=== PATIENT | female | born 2000 | race Caucasian/White ===

== ENCOUNTER 2022-08-22 17:22 | Inpatient (IN) ==
--- NOTE | 2022-08-22 18:19 | Emergency Department Note ---
Impression & Plan Depression with suicidal ideation, [facility] ED Provider Note NAME: CHLOÉ LEWIS AGE: 21 SEX: F : 2000 ARRIVES VIA: Police [employer] INFORMANT: Patient, police ED PROVIDER(S): Abel Duncan DO CHIEF COMPLAINT: Mental health evaluation HPI: The patient is a 21-year-old female who presented to the emergency department with police for an evaluation. The patient arrived with a 302 petition. Apparently the patient has been acting erratically. She also made suicidal ideation no no friend. The friend filled out the 302 petition. The patient self denies having any chest pain or difficulty breathing. She denies having any fever. She denies having any overdose. The patient states that she does have a history of depression. She states she has not been taking her medications and is unsure what the name is but she thinks it could be an SSRI. The patient states that she is never been admitted for the symptoms before. ROS: See above HPI for pertinent positives & negatives. A total of 10 systems reviewed and were otherwise negative. PAST MEDICAL HISTORY: See Below PAST SURGICAL HISTORY: See Below FAMILY HISTORY: See Below SOCIAL HISTORY: See Below HOME MEDICATIONS: See Below ALLERGIES: See Below VITALS: See Below PHYSICAL EXAMINATION: GENERAL: Patient is awake alert in no acute distress patient is resting comfortably and showing no signs of anxiety EYES: The conjunctivae are clear. The pupils are round and reactive. EARS, NOSE, MOUTH AND THROAT: The nose is without any evidence of any deformity. Mucous membranes are moist. Tongue is midline. NECK: The neck is nontender and supple. RESPIRATORY: Normal respiratory effort is noted there is no evidence of wheezing rhonchi or rales CARDIOVASCULAR: Regular rate and rhythm noted there no murmurs rubs or gallops normal S1 normal S2. GASTROINTESTINAL: The abdomen is soft. Abdomen is nontender. MUSCULOSKELETAL/EXTREMITIES: There is no evidence of gross deformity full range of motion is noted in the hips and shoulders. SKIN: There is no obvious evidence of any rash. There are no petechiae, pallor or cyanosis noted. NEUROLOGIC: Patient is awake alert and oriented x3. PSYCH: The patient makes good eye contact mostly evaluation. Affect is somewhat animated. Currently patient is denying any suicidal homicidal ideation. MEDICAL DECISION MAKING: The patient is a 21-year-old female who presented to the emergency department for an evaluation of mental health issues. The patient was a 302 petition when she arrived. I did review the 302 petition. Additional history was obtained from police. The patient was medically cleared in the emergency department. She was then evaluated by the mental health case sealer. She was felt to be a good candidate for inpatient management but the patient has very poor insight into her overall condition. For this reason the 302 petition was upheld by myself. Bed search was underway but the patient was evaluated by 3 S. She was felt to be a good candidate for inpatient psychiatric care at our facility. Triage Nursing notes reviewed. Prior medical records reviewed Vital Signs: reviewed and remarkable for no significant abnormalities Differential diagnosis: Mood disorder, infection, hypoglycemia, electrolyte abnormalities, cardiac sources, intracerebral event, toxicologic, trauma, neurologic, as well as other pathologies. ER treatment provided: See below Diagnostics interpreted by me: ECG: none Laboratory studies: As stated above and show below. Imaging studies: See below. 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 Beliefs That Will Affect Care: None Feels Safe at Home: Yes Gender Identity: Female Assistive Devices: None Allergies Allergies Allergy/AdvReac Type Severity Reaction Status Date / Time amoxicillin [From Augmentin] Allergy Intermediate Rash Verified 09/11/21 22:35 clavulanic acid Allergy Intermediate Rash Verified 09/11/21 22:35 [From Augmentin] Home Meds Home Medications Medication Instructions Recorded Confirmed No Known Home Medications 09/11/21 08/22/22 Results & Data (ED) Vital Signs Vital Signs - 24 hr 08/22/22 17:26 Temperature 36.9 C Temperature Source Temporal Artery Scan Pulse Rate 86 Respiratory Rate 18 Respiratory Effort / Characteristics Non-Labored Spontaneous Respiratory Depth Normal Blood Pressure 133/89 Blood Pressure Mean 103 Blood Pressure Position Sitting Pulse Oximetry 97 Oxygen Delivery Method Room Air Sepsis Recent Fever Within 48 Hours No Sepsis New/Unexplained Change in Mental Status N/A Sepsis Action Taken by Nursing No Action Required Home Medications Current Medication List: was personally reviewed by me Laboratory Data Attestation: I reviewed the patient's lab results. 08/22/22 17:37 08/22/22 17:37 Lab Results 08/22/22 08/22/22 08/22/22 Range/Units 17:37 17:37 17:37 WBC 12.57 H (4.8-10.8) K/ul RBC 4.53 (4.20-5.40) M/uL Hgb 13.6 (12.0-16.0) g/dl Hct 39.3 (37.0-47.0) % MCV 86.8 (80.0-100.0) fL MCH 30.0 (25.0-34.0) pg MCHC 34.6 (32.0-36.0) g/dL RDW Std Deviation 37.4 (36.4-46.3) fL RDW Coeff of [place] 11.9 (11.5-14.5) % Plt Count 399 (130-400) K/uL MPV 9.7 (9.4-12.4) fL Immature Gran % (Auto) 0.3 % Neut % (Auto) 77.9 % Lymph % (Auto) 14.1 % [place] % (Auto) 7.1 % Eos % (Auto) 0.0 % Baso % (Auto) 0.6 % Neut # (Auto) 9.80 H (1.40-6.50) K/uL Lymph # (Auto) 1.77 (1.2-3.4) K/uL [place] # (Auto) 0.89 H (0.11-0.59) K/uL Eos # (Auto) 0.00 (0-0.50) K/uL Baso # (Auto) 0.07 (0-0.2) K/uL Immature Gran # (Auto) 0.04 (0.01-0.20) K/uL Sodium 139 (136-145) mmol/L Potassium 3.6 (3.5-5.1) mmol/L Chloride 106 (98-107) mmol/L Carbon Dioxide 20 L (21-32) mmol/L Anion Gap 13 H (3-11) BUN 12 (6-23) mg/dl Creatinine 0.95 (0.6-1.2) mg/dl Est Cr Clr Drug Dosing 80.9 ml/min Est GFR ( Amer) 99.2 ml/min Est GFR (Non-Af Amer) 85.6 ml/min BUN/Creatinine Ratio 12.6 (10-20) Glucose 130 H (70-99(Fasting)) mg/dl Calcium 10.6 H (8.5-10.1) mg/dl Total Bilirubin 0.9 (0.2-1.0) mg/dl AST 29 (13-39) U/L ALT 14 (7-52) U/L Alkaline Phosphatase 55 (34-104) U/L Total Protein 8.8 H (6.0-8.3) gm/dl Albumin 5.5 H (3.4-5.0) gm/dl Globulin 3.3 (2.5-4.0) gm/dl Albumin/Globulin Ratio 1.7 (0.9-2) TSH 2.820 (0.300-4.500) uIu/ml HCG, Qual (Negative) Salicylates (3.0-30) mg/dl Acetaminophen (10-30) ug/ml Ethyl Alcohol mg/dL (<10.0) mg/dl 08/22/22 08/22/22 08/22/22 Range/Units 17:37 17:37 17:37 WBC (4.8-10.8) K/ul RBC (4.20-5.40) M/uL Hgb (12.0-16.0) g/dl Hct (37.0-47.0) % MCV (80.0-100.0) fL MCH (25.0-34.0) pg MCHC (32.0-36.0) g/dL RDW Std Deviation (36.4-46.3) fL RDW Coeff of [place] (11.5-14.5) % Plt Count (130-400) K/uL MPV (9.4-12.4) fL Immature Gran % (Auto) % Neut % (Auto) % Lymph % (Auto) % [place] % (Auto) % Eos % (Auto) % Baso % (Auto) % Neut # (Auto) (1.40-6.50) K/uL Lymph # (Auto) (1.2-3.4) K/uL [place] # (Auto) (0.11-0.59) K/uL Eos # (Auto) (0-0.50) K/uL Baso # (Auto) (0-0.2) K/uL Immature Gran # (Auto) (0.01-0.20) K/uL Sodium (136-145) mmol/L Potassium (3.5-5.1) mmol/L Chloride (98-107) mmol/L Carbon Dioxide (21-32) mmol/L Anion Gap (3-11) BUN (6-23) mg/dl Creatinine (0.6-1.2) mg/dl Est Cr Clr Drug Dosing ml/min Est GFR ( Amer) ml/min Est GFR (Non-Af Amer) ml/min BUN/Creatinine Ratio (10-20) Glucose (70-99(Fasting)) mg/dl Calcium (8.5-10.1) mg/dl Total Bilirubin (0.2-1.0) mg/dl AST (13-39) U/L ALT (7-52) U/L Alkaline Phosphatase (34-104) U/L Total Protein (6.0-8.3) gm/dl Albumin (3.4-5.0) gm/dl Globulin (2.5-4.0) gm/dl Albumin/Globulin Ratio (0.9-2) TSH (0.300-4.500) uIu/ml HCG, Qual Negative (Negative) Salicylates < 3.0 L (3.0-30) mg/dl Acetaminophen < 3 L (10-30) ug/ml Ethyl Alcohol mg/dL < 10.0 (<10.0) mg/dl Administered Medications Hydroxyzine HCl (Hydroxyzine Hcl 25 Mg Tab) 50 mg PO HSZ PRN PRN Reason: Insomnia Stop: 09/21/22 20:37 Last Admin: 08/22/22 23:50 Dose: 50 mg Documented By: RDS Discharge Plan Visit Data Chief Complaint: Mental Health Evaluation Stated Complaint: 302 ED Provider: Abel Duncan Discharge Problem: Depression with suicidal ideation, [facility] Patient Disposition: Admitted As Inpatient Discharge Instructions Interventions: ED Discharge Assessment Last Done: 08/22/22 20:59
[2022-08-22 18:23] LABS: Appearance Urine Cloudy (Clear); Bacteria Urine Automated 1+ (Negative); Bilirubin Urine Negative (Negative); Blood Urine Negative (Negative); Color Urine Dark Yellow; Epithelial Cell Urine Auto >30 /lpf (0-5); Glucose Urine UA Negative (Negative); Ketones Urine 2+ (Negative); Leukocyte Esterase Urine Negative (Negative); Nitrite Urine Negative (Negative); Protein Urine 1+ (Negative); Specific Gravity Urine 1.042 (1.000-1.030); Urobilinogen Urine Negative (Negative)
[2022-08-22 18:26] LABS: Basophils # (auto) 0.07 K/uL (0-0.2); Basophils % (auto) 0.6 %; Hematocrit (blood only) 39.3 % (37.0-47.0); Hemoglobin 13.6 g/dl (12.0-16.0); Immature Granulocytes # (auto) 0.04 K/uL (0.01-0.20); Immature Granulocytes % (auto) 0.3 %; Lymphocytes # (auto) 1.77 K/uL (1.2-3.4); Lymphocytes % (auto) 14.1 %; Mean Corpuscular Hgb Conc 34.6 g/dL (32.0-36.0); Mean Corpuscular Volume 86.8 fL (80.0-100.0); Mean Platelet Volume 9.7 fL (9.4-12.4); Monocytes # (auto) 0.89 K/uL (0.11-0.59); Monocytes % (auto) 7.1 %; Neutrophils % (auto) 77.9 %; Platelet Count 399 K/uL (130-400); RDW Coefficient of Variation 11.9 % (11.5-14.5); RDW Standard Deviation 37.4 fL (36.4-46.3); Red Blood Count 4.53 M/uL (4.20-5.40); White Blood Count 12.57 K/ul (4.8-10.8)
[2022-08-22 18:33] LABS: Pregnancy Test, Serum Negative (Negative)
[2022-08-22 18:38] LABS: Albumin Globulin Ratio 1.7 (0.9-2); Albumin Level 5.5 gm/dl (3.4-5.0); BUN Creatinine Ratio 12.6 (10-20); Bilirubin,Total 0.9 mg/dl (0.2-1.0); Calcium 10.6 mg/dl (8.5-10.1); Creatinine Clr Calc Pharmacy 80.9 ml/min; Est GFR (African American) 99.2 ml/min; Est GFR (Non-African American) 85.6 ml/min; Globulin 3.3 gm/dl (2.5-4.0); Potassium 3.6 mmol/L (3.5-5.1); Total Protein 8.8 gm/dl (6.0-8.3)
[2022-08-22 18:44] LABS: Calcium Oxalate Crystals Urine Present (None Prsent); Mucus Urine Present (None Prsent)
[2022-08-22 18:52] LABS: Acetaminophen < 3 ug/ml (10-30); Salicylate < 3.0 mg/dl (3.0-30)
[2022-08-22 18:55] LABS: Amphetamines+Metham, Urine Neg (Neg); Barbiturates, Urine Neg (Neg); Benzodiazepine, Urine Neg (Neg); Cocaine, Urine Neg (Neg); MDMA (Ecstacy), Urine Neg (Neg); Methadone, Urine Neg (Neg); Opiate, Urine Neg (Neg); Phencyclidine, Urine Neg (Neg)
[2022-08-22] MEDS ORDERED: BISMUTH SUBSALICYLATE LIQD 236 ML PO PRN (20:38)
[2022-08-22] MEDS ORDERED: MAGNESIUM HYDROXIDE SUSP 30 ML UDC PO PRN (20:38)
[2022-08-22] MEDS ORDERED: ALUMINUM/MAGNESIUM SUSP 30 ML UDC PO PRN (20:38)
[2022-08-22] MEDS ORDERED: SODIUM CHLORIDE 0.65% NA SOLN 45 ML (OCEAN) PRN (20:38)
[2022-08-22] MEDS: hydrOXYzine HCl 25 MG TAB PO PRN (23:50)
[2022-08-23] MEDS: ACETAMINOPHEN 325 MG TAB PO PRN (00:38)
[2022-08-23] MEDS: OLANZapine 5 MG TABLET PO PRN (09:57)
--- NOTE | 2022-08-23 11:49 | History & Physical ---
Date of Service August 23, 2022 Impression / Recommendations Impression Allyssa is a 21 year old woman and [employer] senior with a history of depression who was admitted for lack of po intake, poor sleep, bizarre disorganized behaviors and statements of SI. Diagnostically consistent with unspecified psychosis with a broad differential including: substance-induced psychosis vs mixed episode of bipolar affective disorder vs primary psychotic disorder vs MDD with psychotic features vs underlying medical issue (elevated WBC but vitals stable and ED provider felt no concerning medical issues). UA was positive for ketones which supports concerns about her recent lack of po intake. She is deemed unstable and requires psychiatric hospitalization for diagnostic clarification, safety and stabilization, medication management and development of further coping skills. She is on a 302 commitment which expires on 08/27/2022 at 1853. She is unable to participate in a discussion about medication treatment options or to explore further the degree of her marijuana use and/or any use of synth etics such as delta 8. For now will start olanzapine to improve sleep, appetite and with goal of lessening psychosis and disorganization so that she can start to engage with treatment discussions and further exploration of symptoms and recent history. (1) Unspecified psychosis not due to a substance or known physiological condition: (2) Marijuana use: Plan 08/23/2022: [facility] patient [facility]) on q15 min checks (behavioral with suicide precautions) for safety. The patient will participate in group, recreational, and milieu therapies and will be offered additional individual and family sessions as clinically appropriate. -Start zyprexa 5mg po BID -Continue to hold possible prior to admission Pristiq given concerns for possible lacho/mixed episode Inventory Assets Strengths: supportive relationships, family support, [employer] student Needs: safety and stabilization, medication adjustment, additional coping skills, increased outpatient services Suicide Risk Level Suicide Risk Level: High-Moderate (q15 min suicide checks) (bizarre behaviors with reports of recent SI prior to admission but feels safe talking to the nurses if she feels in need of further support) Risk Factors Assessment Male: No : Yes Do You Have Access To A Gun?: No (none known but will need to verify once mental status improves) Health Problems: No Mental Health Diagnoses: Yes Substance Use Disorders: Yes Protective Factors Assessment Employed: No Stable Relationships: Yes Supportive Family: Yes Psychiatric History Identifying Data ALLYSSA LEWIS is a 21-year-old woman and [employer] senior who currently lives off campus in an apartment, has a history of depression, and was admitted on 08/22/22 21:10 on a 302 involuntary commitment for bizarre behaviors, disorganization, lack of po intake and statements of suicide. Chief Complaint "Can I hug you?". History of Present Illness Allyssa was brought to the hospital via police for bizarre behavior. On arrival to the ED she initially refused to come into the hospital stating she needed to lie on the ground on the sidewalk because the clouds told her that she was tired and should rest. Her friend accompanied her to the ED and reported that Allyssa recently stopping taking Pristiq for depression, has not been eating or drinking over the last week and on 08/20/2022 made statements of suicide to her friend. While in the ED she was confused about where she was. Further recent symptoms were noted by the fast food assistant restaurant manager note on 08/22/2022: "Met with Allyssa and attempted to complete mental health evaluation. Allyssa was groggy and stated she is having difficulty focusing on questions. She stated she is prescribed Pratique by her PCP. She admits to frequently missing doses. She stated she believes she is diagnosed with depression. She has a history of therapy but none current. 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 She stated she is not doing well in her classes. Stated she is "seeing a lot of people and I'm really embarrassed by that." Stated she "maybe hearing voices." She denies alcohol use. She admit to "a lot of pot" use. Allyssa stated she has not been eating or drinking. She stated she has been "sleep deprived." She stated she does not know family history of mental health. She stated her family is supportive but she has difficulty communicating with family about her mental health." Since being admitted the inpatient psychiatry unit she continues to present with significant disorganization and bizarre statements. This morning was requesting to go outside to lie in the grass, walking around with a blanket covering her head and then muttering numbers to herself while tearfully walking in the amor. When I attempted to talk with her she ignored me initially as she seemed to be preoccupied by internal stimuli and was muttering under her breath. She then abruptly turned to me and asked if she could hug me. She responded well to redirection that this would not be possible or appropriate but remained very tearful and disorganized. Further interview and review of history was not possible due to her level of disorganization and distress. Past Psychiatric History Current Psychiatric Diagnosis: Depression Outpatient Services: none known Previous Psych Admissions: unknown Do You Have Access To A Gun?: No (none known but will need to verify once mental status improves) History of Previous Suicide Attempt: No Past Medication Trials: Pristiq Past Head Trauma/Neuro History unknown Allergies Allergy/AdvReac Type Severity Reaction Status Date / Time amoxicillin [From Augmentin] Allergy Intermediate Rash Verified 09/11/21 22:35 clavulanic acid Allergy Intermediate Rash Verified 09/11/21 22:35 [From Augmentin] Home Medications Medication Instructions Recorded Confirmed Type No Known Home Medications 09/11/21 08/22/22 History Family History Family History of: Doesn't Know Alcohol History Hx of Alcohol Use Over the Past 12 Months: No AUDIT Total Score: 4 Smoking Use Have You Smoked or Used Tobacco Products in the Last 30 Days: No Smoking Status: Never smoker Substance History Hx of Prescription Med Misuse Over the Past 12 Months: No Hx of Over the Counter Med Misuse Over the Past 12 Months: No Hx of Inhalent Misuse Over the Past 12 Months: No Hx of Organic Substance Use Over the Past 12 Months: Yes ("a lot of pot") Hx of Illegal Substances/Street Drug Use Over Past 12 Months: No Problems as a Result of Past Substance Use: None Identified UDS positive for marijuana Personal History Living Arrangements: Apartment Childhood: Mother in 2019. Very close with her dad and sister. Highest Grade Completed: Some College (senior in [employer] at [employer]) Marital Status: Single Beliefs That Will Affect Care: None Patient History Medical History Depression with anxiety Social History Smoking Status: Never smoker Hx Alcohol Use: Yes Hx Substance Use: Yes Prescribed Medications: Marijuana Preferred Language: Canadian Communication Ability: Effective Child Monitor Required: No Beliefs That Will Affect Care: None Feels Safe at Home: Yes Gender Identity: Female Assistive Devices: None Review of Systems Review of Systems: Unobtainable due to mental health condition Physical Exam Psychiatric: Orientation: alert, oriented to person and oriented to place Apperance: appropriately dressed and + disheveled Eye Contact: + poor eye contact Motor Behavior: no abnormal motor movements Speech: normal rate/ rhythm/volume of speech Affect: + depressed affect, + anxious affect, + tearful affect and + labile affect Mood: + depressed mood and + anxious mood Thought Process: + looseness of associations and + incoherent thought process Thought Content: + delusions Suicidal Thoughts: denies suicidal plan and denies suicidal intent; + reports suicidal thoughts (unable to assess today, reportedly endorsed SI prior to admission ) Homicidal Thoughts: denies homicidal thoughts Hallucinations: + auditory hallucinations and + visual hallucinations (possible) Cognition: language grossly intact; + recent memory not intact, + remote memory not intact and + attention not intact Estimated Intelligence: consistent with education level Insight: + severely impaired insight Judgment: + severely impaired judgement Vital Signs (Past 24 Hours): Last Vital Signs Temp 36.9 C 08/22/22 21:37 Pulse 101 H 08/22/22 21:37 Resp 18 08/22/22 21:37 BP 130/84 08/22/22 21:37 Pulse Ox 97 08/22/22 17:26 O2 Del Method Room Air 08/22/22 21:37 Exam Statement: A physical exam was performed in the ED by Dr. Duncan for the purposes of medical clearance. I accept that physical as correct and adequate for the purposes of the inpatient physical exam. Results & Data ([facility]) Laboratory Results Laboratory Results - last 24 hr 08/22/22 08/22/22 08/22/22 17:37 17:37 17:37 WBC 12.57 H RBC 4.53 Hgb 13.6 Hct 39.3 MCV 86.8 MCH 30.0 MCHC 34.6 RDW Std Deviation 37.4 RDW Coeff of [place] 11.9 Plt Count 399 MPV 9.7 Immature Gran % (Auto) 0.3 Neut % (Auto) 77.9 Lymph % (Auto) 14.1 [place] % (Auto) 7.1 Eos % (Auto) 0.0 Baso % (Auto) 0.6 Neut # (Auto) 9.80 H Lymph # (Auto) 1.77 [place] # (Auto) 0.89 H Eos # (Auto) 0.00 Baso # (Auto) 0.07 Immature Gran # (Auto) 0.04 Sodium 139 Potassium 3.6 Chloride 106 Carbon Dioxide 20 L Anion Gap 13 H BUN 12 Creatinine 0.95 Est Cr Clr Drug Dosing 80.9 Est GFR ( Amer) 99.2 Est GFR (Non-Af Amer) 85.6 BUN/Creatinine Ratio 12.6 Glucose 130 H Calcium 10.6 H Total Bilirubin 0.9 AST 29 ALT 14 Alkaline Phosphatase 55 Total Protein 8.8 H Albumin 5.5 H Globulin 3.3 Albumin/Globulin Ratio 1.7 TSH 2.820 HCG, Qual Urine Color Urine Appearance Urine pH Ur Specific [place] Urine Protein Urine Glucose (UA) Urine Ketones Urine Blood Urine Nitrite Urine Bilirubin Urine Urobilinogen Ur Leukocyte Esterase Urine WBC (Auto) Urine RBC (Auto) U Hyaline Cast (Auto) U Epithel Cells (Auto) Urine Bacteria (Auto) Ur Renal Epithelial Cell Urine Crystals Calcium Oxalate Crystal Urine Mucus Salicylates Urine Opiates Screen Ur Methadone, Qual Acetaminophen Urine Barbiturates Ur Phencyclidine (PCP) U Amphetamin/Meth Scrn MDMA (Ecstasy) Screen U Benzodiazepines Scrn Ur Cocaine Metabolite U Marijuana (THC) Screen U Marijuana THC Carboxy Drug Screen Comment Ethyl Alcohol mg/dL SARS-CoV-2, RNA, NAAT 08/22/22 08/22/22 08/22/22 17:37 17:37 17:37 WBC RBC Hgb Hct MCV MCH MCHC RDW Std Deviation RDW Coeff of [place] Plt Count MPV Immature Gran % (Auto) Neut % (Auto) Lymph % (Auto) [place] % (Auto) Eos % (Auto) Baso % (Auto) Neut # (Auto) Lymph # (Auto) [place] # (Auto) Eos # (Auto) Baso # (Auto) Immature Gran # (Auto) Sodium Potassium Chloride Carbon Dioxide Anion Gap BUN Creatinine Est Cr Clr Drug Dosing Est GFR ( Amer) Est GFR (Non-Af Amer) BUN/Creatinine Ratio Glucose Calcium Total Bilirubin AST ALT Alkaline Phosphatase Total Protein Albumin Globulin Albumin/Globulin Ratio TSH HCG, Qual Negative Urine Color Urine Appearance Urine pH Ur Specific [place] Urine Protein Urine Glucose (UA) Urine Ketones Urine Blood Urine Nitrite Urine Bilirubin Urine Urobilinogen Ur Leukocyte Esterase Urine WBC (Auto) Urine RBC (Auto) U Hyaline Cast (Auto) U Epithel Cells (Auto) Urine Bacteria (Auto) Ur Renal Epithelial Cell Urine Crystals Calcium Oxalate Crystal Urine Mucus Salicylates < 3.0 L Urine Opiates Screen Ur Methadone, Qual Acetaminophen < 3 L Urine Barbiturates Ur Phencyclidine (PCP) U Amphetamin/Meth Scrn MDMA (Ecstasy) Screen U Benzodiazepines Scrn Ur Cocaine Metabolite U Marijuana (THC) Screen U Marijuana THC Carboxy Drug Screen Comment Ethyl Alcohol mg/dL < 10.0 SARS-CoV-2, RNA, NAAT 08/22/22 08/22/22 08/22/22 Unknown Unknown Unknown WBC RBC Hgb Hct MCV MCH MCHC RDW Std Deviation RDW Coeff of [place] Plt Count MPV Immature Gran % (Auto) Neut % (Auto) Lymph % (Auto) [place] % (Auto) Eos % (Auto) Baso % (Auto) Neut # (Auto) Lymph # (Auto) [place] # (Auto) Eos # (Auto) Baso # (Auto) Immature Gran # (Auto) Sodium Potassium Chloride Carbon Dioxide Anion Gap BUN Creatinine Est Cr Clr Drug Dosing Est GFR ( Amer) Est GFR (Non-Af Amer) BUN/Creatinine Ratio Glucose Calcium Total Bilirubin AST ALT Alkaline Phosphatase Total Protein Albumin Globulin Albumin/Globulin Ratio TSH HCG, Qual Urine Color Dark Yellow Urine Appearance Cloudy A Urine pH 5.0 Ur Specific [place] 1.042 H Urine Protein 1+ H Urine Glucose (UA) Negative Urine Ketones 2+ H Urine Blood Negative Urine Nitrite Negative Urine Bilirubin Negative Urine Urobilinogen Negative Ur Leukocyte Esterase Negative Urine WBC (Auto) 1-5 Urine RBC (Auto) 5-10 H U Hyaline Cast (Auto) 10-30 H U Epithel Cells (Auto) >30 H Urine Bacteria (Auto) 1+ H Ur Renal Epithelial Cell Not Reportable Urine Crystals Not Reportable Calcium Oxalate Crystal Present A Urine Mucus Present A Salicylates Urine Opiates Screen Neg Ur Methadone, Qual Neg Acetaminophen Urine Barbiturates Neg Ur Phencyclidine (PCP) Neg U Amphetamin/Meth Scrn Neg MDMA (Ecstasy) Screen Neg U Benzodiazepines Scrn Neg Ur Cocaine Metabolite Neg U Marijuana (THC) Screen Pos H U Marijuana THC Carboxy Drug Screen Comment Ethyl Alcohol mg/dL SARS-CoV-2, RNA, NAAT NEGATIVE 08/22/22 Unknown WBC RBC Hgb Hct MCV MCH MCHC RDW Std Deviation RDW Coeff of [place] Plt Count MPV Immature Gran % (Auto) Neut % (Auto) Lymph % (Auto) [place] % (Auto) Eos % (Auto) Baso % (Auto) Neut # (Auto) Lymph # (Auto) [place] # (Auto) Eos # (Auto) Baso # (Auto) Immature Gran # (Auto) Sodium Potassium Chloride Carbon Dioxide Anion Gap BUN Creatinine Est Cr Clr Drug Dosing Est GFR ( Amer) Est GFR (Non-Af Amer) BUN/Creatinine Ratio Glucose Calcium Total Bilirubin AST ALT Alkaline Phosphatase Total Protein Albumin Globulin Albumin/Globulin Ratio TSH HCG, Qual Urine Color Urine Appearance Urine pH Ur Specific [place] Urine Protein Urine Glucose (UA) Urine Ketones Urine Blood Urine Nitrite Urine Bilirubin Urine Urobilinogen Ur Leukocyte Esterase Urine WBC (Auto) Urine RBC (Auto) U Hyaline Cast (Auto) U Epithel Cells (Auto) Urine Bacteria (Auto) Ur Renal Epithelial Cell Urine Crystals Calcium Oxalate Crystal Urine Mucus Salicylates Urine Opiates Screen Ur Methadone, Qual Acetaminophen Urine Barbiturates Ur Phencyclidine (PCP) U Amphetamin/Meth Scrn MDMA (Ecstasy) Screen U Benzodiazepines Scrn Ur Cocaine Metabolite U Marijuana (THC) Screen U Marijuana THC Carboxy Pending Drug Screen Comment Pending Ethyl Alcohol mg/dL SARS-CoV-2, RNA, NAAT Current Inpatient Medications Current Inpatient Medications: Current Inpatient Medications Acetaminophen (Acetaminophen 325 Mg Tab) 650 mg PO Q4H PRN PRN Reason: Headache or Minor Fever Stop: 09/21/22 20:37 Last Admin: 08/23/22 00:38 Dose: 650 mg Al Hydrox/Mg Hydrox/Simethicone (Aluminum/Magnesium Susp 30 Ml Udc) 30 ml PO Q4H PRN PRN Reason: GI Upset Stop: 09/21/22 20:37 Bismuth Subsalicylate (Bismuth Subsalicylate Liqd 236 Ml) 15 ml PO PRN PRN PRN Reason: Loose Stool Stop: 09/21/22 20:37 Hydroxyzine HCl (Hydroxyzine Hcl 25 Mg Tab) 50 mg PO HSZ PRN PRN Reason: Insomnia Stop: 09/21/22 20:37 Last Admin: 08/22/22 23:50 Dose: 50 mg Hydroxyzine HCl (Hydroxyzine Hcl 25 Mg Tab) 25 mg PO Q4H PRN PRN Reason: Anxiety Stop: 09/21/22 20:37 Magnesium Hydroxide (Magnesium Hydroxide Susp 30 Ml Udc) 30 ml PO DAILY PRN PRN Reason: Constipation Stop: 09/21/22 20:37 Olanzapine (Olanzapine 5 Mg Tablet) 5 mg PO BID PRN PRN Reason: Agitation Anxiety Stop: 09/22/22 08:59 Last Admin: 08/23/22 09:57 Dose: 5 mg Sodium Chloride (Sodium Chloride 0.65% Na Soln 45 Ml ([place])) 1 - 2 sprays NA PRN PRN PRN Reason: Nasal Dryness/Congestion Stop: 09/21/22 20:37
[2022-08-23] MEDS: OLANZapine 5 MG TABLET PO SCH (20:51)
[2022-08-24] MEDS: OLANZapine 5 MG TABLET PO SCH (09:58)
[2022-08-24] MEDS: OLANZapine 5 MG TABLET PO PRN (10:20)
[2022-08-24] MEDS: ACETAMINOPHEN 325 MG TAB PO PRN (12:08)
--- NOTE | 2022-08-24 20:28 | Psychiatric Progress Note ---
Date of Service August 24, 2022 Impression / Recommendations Impression Allyssa is a 21 year old woman and [employer] senior with a history of depression who was admitted for lack of po intake, poor sleep, bizarre disorganized behaviors and statements of SI. Diagnostically consistent with unspecified psychosis with a broad differential including: substance-induced psychosis vs mixed episode of bipolar affective disorder vs primary psychotic disorder vs MDD with psychotic features vs underlying medical issue (elevated WBC but vitals stable and ED provider felt no concerning medical issues). UA was positive for ketones which supports concerns about her recent lack of po intake. She is deemed unstable and requires psychiatric hospitalization for diagnostic clarification, safety and stabilization, medication management and development of further coping skills. She is on a 302 commitment which expires on 08/27/2022 at 1853. 08/24/2022: Ongoing psychosis with significant disorganization, paranoia, odd behaviors. Sleeping better with olanzapine and no evidence of side effects. Like ly will need to consider 303 commitment tomorrow given 302 expires on Sunday and she remains severely impaired. (1) Unspecified psychosis not due to a substance or known physiological c ondition: (2) Marijuana use: Plan 08/24/2022: Continue olanzapine 5mg BID and additional 5mg bid prn for psychosis/agitation 08/23/2022: [facility] on q15 min checks (behavioral with suicide precautions) for safety. The patient will participate in group, recreational, and milieu therapies and w ill be offered additional individual and family sessions as clinically appropriate. -Start zyprexa 5mg po BID -Continue to hold possible prior to admission Pristiq given concerns for possible lacho/mixed episode Inventory Assets Strengths: supportive relationships, family support, [employer] student Needs: safety and stabilization, medication adjustment, additional coping skills, increased outpatient services Suicide Risk Level Suicide Risk Level: High-Moderate (q15 min suicide checks) (bizarre behaviors with reports of recent SI prior to admission but feels safe talking to the nurses if she feels in need of further support) Risk Factors Assessment Male: No : Yes Do You Have Access To A Gun?: No (none known but will need to verify once mental status improves) Health Problems: No Mental Health Diagnoses: Yes Substance Use Disorders: Yes Protective Factors Assessment Employed: No Stable Relationships: Yes Supportive Family: Yes Interval History Identifying Information ALLYSSA LEWIS is a 21-year-old woman 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 Chief Complaint "counting helps me hear my breath". Review of Systems Sleep Information Total Hours of Sleep: 7.0 Sleep Comments: Received Vistaril for sleep Meal Information Percent Meal Consumed - Breakfast: 0 Percent Meal Consumed - Lunch: 100 Percent Meal Consumed - Dinner: 0 Nutrition Comment: allowed to sleep Subjective Subjective Patient was seen & assessed and interval progress reviewed with treatment team nursing and social work. Slept overnight though reports she slept badly due to nightmares. Still very disorganized, spending almost all her time in her room or walking around with her eyes closed and covered with a blanket. Still with high levels of fear, reports feeling scared a new thang she dated a few weeks ago "may have done something" but can't identify what this might have been except that she worries he might have hurt her somehow. Denies any medication side effects, likes the zyprexa. Struggles to converse and at one point states "I'm not ready to talk about it" when trying to discuss if she will sign a release for her father or other family members. Starts counting and says this is to help "hear my breath". Asked what we could help her with she asks for the strings to be cut off her paper face mask and then it laid back down over the edge of the bed. Physical Exam Psychiatric Orientation: alert, oriented to person and oriented to place Apperance: appropriately dressed and + disheveled Eye Contact: + poor eye contact Motor Behavior: no abnormal motor movements Speech: normal rate/rhythm/volume of speech Affect: + depressed affect, + anxious affect, + tearful affect and + labile affect Mood: + depressed mood and + anxious mood Thought Process: + looseness of associations and + incoherent thought process Thought Content: + delusions Suicidal Thoughts: denies suicidal plan and denies suicidal intent; + reports suicidal thoughts (unable to assess today, reportedly endorsed SI prior to admission ) Homicidal Thoughts: denies homicidal thoughts Hallucinations: + auditory hallucinations and + visual hallucinations (possible) Cognition: language grossly intact; + recent memory not intact, + remote memory not intact and + attention not intact Estimated Intelligence: consistent with education level Insight: + severely impaired insight Judgment: + severely impaired judgement Vital Signs (Past 24 Hours) Last Vital Signs Temp 37.1 C 08/24/22 20:00 Pulse 61 08/24/22 06:25 Resp 18 08/24/22 06:25 BP 107/70 08/24/22 06:27 Pulse Ox 97 08/22/22 17:26 O2 Del Method Room Air 08/22/22 21:37 Results & Data ([id number]) Current Inpatient Medications Current Inpatient Medications: Current Inpatient Medications Acetaminophen (Acetaminophen 325 Mg Tab) 650 mg PO Q4H PRN PRN Reason: Headache or Minor Fever Stop: 09/21/22 20:37 Last Admin: 08/24/22 12:08 Dose: 650 mg Al Hydrox/Mg Hydrox/Simethicone (Aluminum/Magnesium Susp 30 Ml Udc) 30 ml PO Q4H PRN PRN Reason: GI Upset Stop: 09/21/22 20:37 Bismuth Subsalicylate (Bismuth Subsalicylate Liqd 236 Ml) 15 ml PO PRN PRN PRN Reason: Loose Stool Stop: 09/21/22 20:37 Hydroxyzine HCl (Hydroxyzine Hcl 25 Mg Tab) 50 mg PO HSZ PRN PRN Reason: Insomnia Stop: 09/21/22 20:37 Last Admin: 08/22/22 23:50 Dose: 50 mg Hydroxyzine HCl (Hydroxyzine Hcl 25 Mg Tab) 25 mg PO Q4H PRN PRN Reason: Anxiety Stop: 09/21/22 20:37 Magnesium Hydroxide (Magnesium Hydroxide Susp 30 Ml Udc) 30 ml PO DAILY PRN PRN Reason: Constipation Stop: 09/21/22 20:37 Olanzapine (Olanzapine 5 Mg Tablet) 5 mg PO BID PRN PRN Reason: Agitation Anxiety Stop: 09/22/22 08:59 Last Admin: 08/24/22 10:20 Dose: 5 mg Olanzapine (Olanzapine 5 Mg Tablet) 5 mg PO HS CATHY Stop: 09/23/22 21:59 Sodium Chloride (Sodium Chloride 0.65% Na Soln 45 Ml ([place])) 1 - 2 sprays NA PRN PRN PRN Reason: Nasal Dryness/Congestion Stop: 09/21/22 20:37 Mental Health & Subst Abuse Tx Therapist Name of Therapist: Hx - none currently Telemarketing Manager Name of Telemarketing Manager: None Post Discharge Appointments Primary Care Physician Name Of Family Doctor/PCP: CRISPIN
[2022-08-24] MEDS ORDERED: OLANZapine 5 MG TABLET PO SCH (22:00)
[2022-08-24] MEDS: hydrOXYzine HCl 25 MG TAB PO PRN (22:19)
[2022-08-25 00:12] LABS: Marijuana Quant, GCMS Urine 377 ng/mL (<5)
[2022-08-25] MEDS: OLANZapine 5 MG TABLET PO PRN ×2 (00:49→07:57)
--- NOTE | 2022-08-25 09:01 | Psychiatric Progress Note ---
Date of Service August 25, 2022 Impression / Recommendations Impression Chloé is a 21 year old woman and [employer] senior with a history of depression who was admitted for lack of po intake, poor sleep, bizarre disorganized behaviors and statements of SI. Diagnostically consistent with unspecified psychosis with a broad differential including: substance-induced psychosis vs mixed episode of bipolar affective disorder vs primary psychotic disorder vs MDD with psychotic features vs underlying medical issue (elevated WBC but vitals stable and ED provider felt no concerning medical issues). UA was positive for ketones which supports concerns about her recent lack of po intake. She is deemed unstable and requires psychiatric hospitalization for diagnostic clarification, safety and stabilization, medication management and development of further coping skills. She was initially on a 302 commitment, 303 commitment starting on 08/25/2022. 08/25/2022: Ongoing psychosis with significant disorganization, paranoia, odd behaviors. Sleep was very poor last night with increased delusions and seemed to have visual hallucinations vs paranoia about someone being in her bathroom. Ongoing persecutory delusions today. Postured aggressively toward the counselor last night. I spent 35 minutes completing 303 commitment paperwork and attending and participating in the 303 hearing. 303 commitment was granted due to risk of harm to others and inability to attend to self-care needs. No side effects from olanzapine so will continue with dose titration. Also started ativan prn to help with extreme anxiety related to persecutory delusions. (1) Unspecified psychosis not due to a substance or known physiological condition: (2) Marijuana use: Plan 08/25/2022: Consolidate to olanzapine 10mg HS with 5mg TID prn for psychosis/agitation. Now on 303 commitment. 08/24/2022: Continue olanzapine 5mg BID and additional 5mg bid prn for psychosis/agitation 08/23/2022: The patient was admitted [facility] ([facility] health unit) on q15 min checks (behavioral with suicide precautions) for safety. The patient will participate in group, recreational, and milieu therapies and will be offered additional individual and family sessions as clinically appropriate. -Start zyprexa 5mg po BID -Continue to hold possible prior to admission Pristiq given concerns for possible lacho/mixed episode Inventory Assets Strengths: supportive relationships, family support, [employer] student Needs: safety and stabilization, medication adjustment, additional coping skills, increased outpatient services Suicide Risk Level Suicide Risk Level: High-Moderate (q15 min suicide checks) (bizarre behaviors with reports of recent SI prior to admission but feels safe talking to the nurses if she feels in need of further support) Risk Factors Assessment Male: No : Yes Do You Have Access To A Gun?: No (none known but will need to verify once mental status improves) Health Problems: No Mental Health Diagnoses: Yes Substance Use Disorders: Yes Protective Factors Assessment Employed: No Stable Relationships: Yes Supportive Family: Yes Interval History Identifying Information CHLOÉ LEWIS is a 21-year-old woman 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 Chief Complaint "I'm scared he's going to hurt me". Review of Systems Sleep Information Total Hours of Sleep: 1.75 Sleep Comments: Up most of the night; ringing bathroom call medley and paranoid that people were in her room. Noted to have episode of psychotic agitation. Took Vistaril for insomnia and Zyprexa for agitation/anxiety. Meal Information Percent Meal Consumed - Breakfast: 0 Percent Meal Consumed - Lunch: 100 Percent Meal Consumed - Dinner: 0 Nutrition Comment: allowed to sleep Subjective Subjective Patient was seen & assessed and interval progress reviewed with treatment team nursing and social work. Was awake almost all night. Postured at the counselor. Screaming due to fears about being hurt. Repeatedly asking staff to check her bathroom as she thought a man was hiding in her bathroom. This morning came to the nurses station door naked wrapped only in a blanket with toothpaste coming out of her mouth. Requiring redirection to spit out the toothpaste and rinse of her mouth then extensive redirection to get changed into clothes. Still frequently counting under her breath. Tells me she is fearful someone (a male) is going to hurt her but isn't sure why. States she wasn't hurt by anyone before coming to the hospital. She's unsure if the olanzapine is helping. Did then sleep during the afternoon in the quiet room. Requiring encouragement to attend to basic ADLs such as eating, hygiene, changing clothes. Physical Exam Psychiatric Orientation: alert, oriented to person and oriented to place Apperance: appropriately dressed and + disheveled Eye Contact: + poor eye contact Motor Behavior: no abnormal motor movements Speech: normal rate/rhythm/volume of speech Affect: + depressed affect, + anxious affect, + tearful affect and + labile affect Mood: + depressed mood and + anxious mood Thought Process: + looseness of associations and + incoherent thought process Thought Content: + delusions (persecutory ) Suicidal Thoughts: denies suicidal plan and denies suicidal intent; + reports suicidal thoughts (unable to assess today, reportedly endorsed SI prior to admission ) Homicidal Thoughts: denies homicidal thoughts Hallucinations: + auditory hallucinations and + visual hallucinations (possible) Cognition: language grossly intact; + recent memory not intact, + remote memory not intact and + attention not intact Estimated Intelligence: consistent with education level Insight: + severely impaired insight Judgment: + severely impaired judgement Vital Signs (Past 24 Hours) Last Vital Signs Temp 37.1 C 08/24/22 20:00 Pulse 61 08/24/22 06:25 Resp 18 08/24/22 06:25 BP 107/70 08/24/22 06:27 Pulse Ox 97 08/22/22 17:26 O2 Del Method Room Air 08/22/22 21:37 Results & Data ([facility]) Laboratory Results Laboratory Results - last 24 hr 08/22/22 Unknown U Marijuana THC Carboxy 377 H Drug Screen Comment SEE NOTE Current Inpatient Medications Current Inpatient Medications: Current Inpatient Medications Acetaminophen (Acetaminophen 325 Mg Tab) 650 mg PO Q4H PRN PRN Reason: Headache or Minor Fever Stop: 09/21/22 20:37 Last Admin: 08/24/22 12:08 Dose: 650 mg Al Hydrox/Mg Hydrox/Simethicone (Aluminum/Magnesium Susp 30 Ml Udc) 30 ml PO Q4H PRN PRN Reason: GI Upset Stop: 09/21/22 20:37 Bismuth Subsalicylate (Bismuth Subsalicylate Liqd 236 Ml) 15 ml PO PRN PRN PRN Reason: Loose Stool Stop: 09/21/22 20:37 Hydroxyzine HCl (Hydroxyzine Hcl 25 Mg Tab) 50 mg PO HSZ PRN PRN Reason: Insomnia Stop: 09/21/22 20:37 Last Admin: 08/24/22 22:19 Dose: 50 mg Hydroxyzine HCl (Hydroxyzine Hcl 25 Mg Tab) 25 mg PO Q4H PRN PRN Reason: Anxiety Stop: 09/21/22 20:37 Magnesium Hydroxide (Magnesium Hydroxide Susp 30 Ml Udc) 30 ml PO DAILY PRN PRN Reason: Constipation Stop: 09/21/22 20:37 Olanzapine (Olanzapine 5 Mg Tablet) 5 mg PO HS CATHY Stop: 09/23/22 21:59 Last Admin: 08/24/22 21:36 Dose: 5 mg Olanzapine (Olanzapine 5 Mg Tablet) 5 mg PO TID PRN PRN Reason: Agitation Anxiety Stop: 09/21/22 21:29 Last Admin: 08/25/22 07:57 Dose: 5 mg Sodium Chloride (Sodium Chloride 0.65% Na Soln 45 Ml ([place])) 1 - 2 sprays NA PRN PRN PRN Reason: Nasal Dryness/Congestion Stop: 09/21/22 20:37 Mental Health & Subst Abuse Tx Therapist Name of Therapist: Hx - none currently Field Sales Executive Name of Field Sales Executive: None Post Discharge Appointments Primary Care Physician Name Of Family Doctor/PCP: CRISPIN
[2022-08-25] MEDS ORDERED: LORazepam 1 MG TAB ONE (10:56)
[2022-08-25] MEDS ORDERED: OLANZapine 10 MG/2.1 ML SDV IM PRN (17:29)
[2022-08-25] MEDS: OLANZapine 10 MG TAB PO SCH (21:30)
[2022-08-26] MEDS: LORazepam 1 MG TAB PO PRN (07:10)
[2022-08-26] MEDS: OLANZapine 5 MG TABLET PO PRN (08:33)
--- NOTE | 2022-08-26 10:05 | Psychiatric Progress Note ---
Date of Service August 26, 2022 Impression / Recommendations Impression Chloé is a 21 year old woman and [employer] senior with a history of depression who was admitted for lack of po intake, poor sleep, bizarre disorganized behaviors and statements of SI. Diagnostically consistent with unspecified psychosis with a broad differential including: substance-induced psychosis vs mixed episode of bipolar affective disorder vs primary psychotic disorder vs MDD with psychotic features vs underlying medical issue (elevated WBC but vitals stable and ED provider felt no concerning medical issues). UA was positive for ketones which supports concerns about her recent lack of po intake. She is deemed unstable and requires psychiatric hospitalization for diagnostic clarification, safety and stabilization, medication management and development of further coping skills. She was initially on a 302 commitment, 303 commitment starting on 08/25/2022. 08/26/2022: I met with pt along with RN due to her fears of men (or at least "a man"). Psychotic last night, ringing call medley due to "people in the room". Continues to count under her breath very often. Has remained very disorganized. E.g., came to the nurses' station wrapped in a sheet but otherwise naked, saying she didn't know how to get dressed. Some potentially very risky behavior including jumping over the stationary bike. Both pt and staff think olanzapine and lorazepam administered together this morning have helped quell the anxiety to a degree. She's required multiple PRN doses of olanzapine. No side effects have been noted attributable to medications. 08/25/2022: Ongoing psychosis with significant disorganization, paranoia, odd behaviors. Sleep was very poor last night with increased delusions and seemed to have visual hallucinations vs paranoia about someone being in her bathroom. Ongoing persecutory delusions today. Postured aggressively toward the counselor last night. I spent 35 minutes completing 303 commitment paperwork and attending and participating in the 303 hearing. 303 commitment was granted due to risk of harm to others and inability to attend to self-care needs. No side effects from olanzapine so will continue with dose titration. Also started ativan prn to help with extreme anxiety related to persecutory delusions. (1) Substance-induced psychotic disorder: Present on Admission?: Yes (2) Marijuana use: Present on Admission?: Yes Plan 08/26/2022: * Increase olanzapine to 5 mg QAM & 10 mg QHS, continue to titrate based on PRN use * Continue olanzapine 5 mg PO/IM BID PRN psychosis * Continue lorazepam 1 mg TID PRN anxiety * A private room remains medically necessary for the safety of self and others. 08/25/2022: Consolidate to olanzapine 10mg HS with 5mg TID prn for psychosis/agitation. Now on 303 commitment. 08/24/2022: Continue olanzapine 5mg BID and additional 5mg bid prn for psychosis/agitation 08/23/2022: The patient was [facility] to the [facility] on q15 min checks (behavioral with suicide precautions) for safety. The patient will participate in group, recreational, and milieu therapies and will be offered additional individual and family sessions as clinically appropriate. -Start zyprexa 5mg po BID -Continue to hold possible prior to admission Pristiq given concerns for possible lacho/mixed episode Inventory Assets Strengths: supportive relationships, family support, [employer] student Needs: safety and stabilization, medication adjustment, additional coping skills, increased outpatient services Suicide Risk Level Suicide Risk Level: High-Moderate (q15 min suicide checks) (bizarre behaviors with reports of recent SI prior to admission but feels safe talking to the nurses if she feels in need of further support) Risk Factors Assessment Male: No : Yes Do You Have Access To A Gun?: No (none known but will need to verify once mental status improves) Health Problems: No Mental Health Diagnoses: Yes Substance Use Disorders: Yes Protective Factors Assessment Employed: No Stable Relationships: Yes Supportive Family: Yes Interval History Identifying Information CHLOÉ LEWIS is a 21-year-old woman 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 Chief Complaint "I've just... been...". Review of Systems Sleep Information Total Hours of Sleep: 10.5 Sleep Comments: Up most of the night; ringing bathroom call medley and paranoid that people were in her room. Noted to have episode of psychotic agitation. Took Vistaril for insomnia and Zyprexa for agitation/anxiety. Meal Information Percent Meal Consumed - Breakfast: 0 Percent Meal Consumed - Lunch: 50 Percent Meal Consumed - Dinner: 10 Nutrition Comment: allowed to sleep Subjective Subjective Patient was seen & assessed and interval progress reviewed with nursing and social work. For details, see "Impression" Physical Exam Psychiatric Orientation: alert, oriented to person and oriented to place Apperance: appropriately dressed and + disheveled Eye Contact: + poor eye contact Motor Behavior: no abnormal motor movements increased latency of response, slow, brief, and very quiet nearly to the point of inaudibility Affect: + depressed affect and + anxious affect Mood: + depressed mood and + anxious mood Thought Process: + thought blocking, + looseness of associations and + incoherent thought process Thought Content: + delusions (persecutory ) Suicidal Thoughts: denies suicidal plan and denies suicidal intent; + reports suicidal thoughts (unable to assess today, reportedly endorsed SI prior to admission ) Homicidal Thoughts: denies homicidal thoughts Hallucinations: + auditory hallucinations and + visual hallucinations (possible) Cognition: language grossly intact; + recent memory not intact, + remote memory not intact and + attention not intact Estimated Intelligence: consistent with education level Insight: + severely impaired insight Judgment: + severely impaired judgement Vital Signs (Past 24 Hours) Last Vital Signs Temp 36.6 C 08/25/22 20:00 Pulse 61 08/24/22 06:25 Resp 18 08/24/22 06:25 BP 107/70 08/24/22 06:27 Pulse Ox 97 08/22/22 17:26 O2 Del Method Room Air 08/22/22 21:37 Results & Data ([facility]) Current Inpatient Medications Current Inpatient Medications: Current Inpatient Medications Acetaminophen (Acetaminophen 325 Mg Tab) 650 mg PO Q4H PRN PRN Reason: Headache or Minor Fever Stop: 09/21/22 20:37 Last Admin: 08/24/22 12:08 Dose: 650 mg Al Hydrox/Mg Hydrox/Simethicone (Aluminum/Magnesium Susp 30 Ml Udc) 30 ml PO Q4H PRN PRN Reason: GI Upset Stop: 09/21/22 20:37 Bismuth Subsalicylate (Bismuth Subsalicylate Liqd 236 Ml) 15 ml PO PRN PRN PRN Reason: Loose Stool Stop: 09/21/22 20:37 Hydroxyzine HCl (Hydroxyzine Hcl 25 Mg Tab) 50 mg PO HSZ PRN PRN Reason: Insomnia Stop: 09/21/22 20:37 Last Admin: 08/24/22 22:19 Dose: 50 mg Hydroxyzine HCl (Hydroxyzine Hcl 25 Mg Tab) 25 mg PO Q4H PRN PRN Reason: Anxiety Stop: 09/21/22 20:37 Lorazepam (Lorazepam 1 Mg Tab) 1 mg PO TID PRN PRN Reason: Anxiety/Agitation Stop: 09/24/22 10:52 Last Admin: 08/26/22 07:10 Dose: 1 mg Magnesium Hydroxide (Magnesium Hydroxide Susp 30 Ml Udc) 30 ml PO DAILY PRN PRN Reason: Constipation Stop: 09/21/22 20:37 Olanzapine (Olanzapine 5 Mg Tablet) 5 mg PO TID PRN PRN Reason: Agitation Anxiety Stop: 09/21/22 21:29 Last Admin: 08/26/22 08:33 Dose: 5 mg Olanzapine (Olanzapine 10 Mg Tab) 10 mg PO HS CATHY Stop: 09/24/22 21:59 Last Admin: 08/25/22 21:30 Dose: 10 mg Olanzapine (Olanzapine 10 Mg/2.1 Ml Sdv) 10 mg IM DAILY PRN PRN Reason: Agitation Stop: 09/25/22 08:59 Sodium Chloride (Sodium Chloride 0.65% Na Soln 45 Ml ([place])) 1 - 2 sprays NA PRN PRN PRN Reason: Nasal Dryness/Congestion Stop: 09/21/22 20:37 Mental Health & Subst Abuse Tx Therapist Name of Therapist: Hx - none currently Molding Plasterer Name of Molding Plasterer: None Post Discharge Appointments Primary Care Physician Name Of Family Doctor/PCP: CRISPIN E&M Selection based on Time Time Spent Minutes Spent on Pre-Visit Items: 12 (multidisciplinary treatment team meeting, review of record, including reading nursing and social work notes) Minutes Spent During Visit: 25 (interview, supportive psychotherapy) Minutes Spent Post-Visit: 11 (documentation, communication with relevant members of the treatment team) Total Minutes Spent: 48
[2022-08-26] MEDS: LORazepam 0.5 MG TAB PO SCH ×2 (13:38→20:27)
[2022-08-26] MEDS: OLANZapine 10 MG TAB PO SCH (21:03)
[2022-08-26] MEDS: ACETAMINOPHEN 325 MG TAB PO PRN (21:40)
[2022-08-27] MEDS: OLANZapine 5 MG TABLET PO SCH (07:55)
[2022-08-27] MEDS: LORazepam 0.5 MG TAB PO SCH ×3 (07:55→20:58)
--- NOTE | 2022-08-27 11:33 | Psychiatric Progress Note ---
Date of Service August 27, 2022 Impression / Recommendations Impression Chloé is a 21 year old woman and [employer] senior with a history of depression who was admitted for lack of po intake, poor sleep, bizarre disorganized behaviors and statements of SI. Diagnostically consistent with unspecified psychosis with a broad differential including: substance-induced psychosis vs mixed episode of bipolar affective disorder vs primary psychotic disorder vs MDD with psychotic features vs underlying medical issue (elevated WBC but vitals stable and ED provider felt no concerning medical issues). UA was positive for ketones which supports concerns about her recent lack of po intake. She is deemed unstable and requires psychiatric hospitalization for diagnostic clarification, safety and stabilization, medication management and development of further coping skills. She was initially on a 302 commitment, 303 commitment starting on 08/25/2022. 08/27/2022: Remains frightened and delusional - last night was up reporting people in her room. During the day yesterday she several times reported "nightmares" despite not having slept. She was unreceptive to clarification that she's been hallucinating. Continues to require PRN doses of olanzapine, so scheduled dose has been being adjusted to minimize the need for this. She has been tolerating these increased doses. 08/26/2022: I met with pt along with RN due to her fears of men (or at least "a man"). Psychotic last night, ringing call medley due to "people in the room". Continues to count under her breath very often. Has remained very disorganized. E.g., came to the nurses' station wrapped in a sheet but otherwise naked, saying she didn't know how to get dressed. Some potentially very risky behavior including jumping over the stationary bike. Both pt and staff think olanzapine and lorazepam administered together this morning have helped quell the anxiety to a degree. She's required multiple PRN doses of olanzapine. No side effects have been noted attributable to medications. 08/25/2022: Ongoing psychosis with significant disorganization, paranoia, odd behaviors. Sleep was very poor last night with increased delusions and seemed to have visual hallucinations vs paranoia about someone being in her bathroom. Ongoing persecutory delusions today. Postured aggressively toward the counselor last night. I spent 35 minutes completing 303 commitment paperwork and attending and participating in the 303 hearing. 303 commitment was granted due to risk of harm to others and inability to attend to self-care needs. No side effects from olanzapine so will continue with dose titration. Also started ativan prn to help with extreme anxiety related to persecutory delusions. (1) Substance-induced psychotic disorder: (2) Marijuana use: Plan 08/27/2022: * Continue olanzapine 5 mg QAM & 10 mg QHS, continue to titrate based on PRN use * Continue olanzapine 5 mg PO/IM BID PRN psychosis * Continue lorazepam 1 mg TID PRN anxiety - may need to increase this * A private room remains medically necessary for the safety of self and others. 08/26/2022: * Increase olanzapine to 5 mg QAM & 10 mg QHS, continue to titrate based on PRN use * Continue olanzapine 5 mg PO/IM BID PRN psychosis * Continue lorazepam 1 mg TID PRN anxiety * A private room remains medically necessary for the safety of self and others. 08/25/2022: Consolidate to olanzapine 10mg HS with 5mg TID prn for psychosis/a gitation. Now on 303 commitment. 08/24/2022: Continue olanzapine 5mg BID and additional 5mg bid prn for psychosis/agitation 08/23/2022: The patient was admitted to the [facility] ([facility] unit) on q15 min checks (behavioral with suicide precautions) for safety. The patient will participate in group, recreational, and milieu therapies and will be offered additional individual and family sessions as clinically appropriate. -Start zyprexa 5mg po BID -Continue to hold possible prior to admission Pristiq given concerns for possible lacho/mixed episode Inventory Assets Strengths: supportive relationships, family support, [employer] student Needs: safety and stabilization, medication adjustment, additional coping skills, increased outpatient services Suicide Risk Level Suicide Risk Level: High-Moderate (q15 min suicide checks) (bizarre behaviors with reports of recent SI prior to admission but feels safe talking to the nurses if she feels in need of further support) Risk Factors Assessment Male: No : Yes Do You Have Access To A Gun?: No (none known but will need to verify once mental status improves) Health Problems: No Mental Health Diagnoses: Yes Substance Use Disorders: Yes Protective Factors Assessment Employed: No Stable Relationships: Yes Supportive Family: Yes Interval History Identifying Information CHLOÉ LEWIS is a 21-year-old woman 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 Chief Complaint "Please leave me alone". Review of Systems Sleep Information Total Hours of Sleep: 7.75 Sleep Comments: Up most of the night; ringing bathroom call medley and paranoid that people were in her room. Noted to have episode of psychotic agitation. Took Vistaril for insomnia and Zyprexa for agitation/anxiety. Meal Information Percent Meal Consumed - Breakfast: 100 Percent Meal Consumed - Lunch: 50 Percent Meal Consumed - Dinner: 80 Nutrition Comment: allowed to sleep Subjective Subjective Patient was seen & assessed and interval progress reviewed with nursing and social work Physical Exam Psychiatric Orientation: alert, oriented to person and oriented to place Apperance: appropriately dressed and + disheveled Eye Contact: + poor eye contact Motor Behavior: no abnormal motor movements Speech: normal rate/rhythm/volume of speech Affect: + depressed affect, + anxious affect and + labile affect Mood: + depressed mood and + anxious mood Thought Process: + thought blocking, + looseness of associations and + incoherent thought process Thought Content: + delusions (persecutory ) Suicidal Thoughts: denies suicidal plan and denies suicidal intent; + reports suicidal thoughts (unable to assess today, reportedly endorsed SI prior to admission ) Homicidal Thoughts: denies homicidal thoughts Hallucinations: + auditory hallucinations and + visual hallucinations Cognition: language grossly intact; + recent memory not intact, + remote memory not intact and + attention not intact Estimated Intelligence: consistent with education level Insight: + severely impaired insight Judgment: + severely impaired judgement Vital Signs (Past 24 Hours) Last Vital Signs Temp 36.6 C 08/26/22 20:00 Pulse 61 08/24/22 06:25 Resp 18 08/24/22 06:25 BP 107/70 08/24/22 06:27 Pulse Ox 97 08/22/22 17:26 O2 Del Method Room Air 08/22/22 21:37 Results & Data ([facility]) Current Inpatient Medications Current Inpatient Medications: Current Inpatient Medications Acetaminophen (Acetaminophen 325 Mg Tab) 650 mg PO Q4H PRN PRN Reason: Headache or Minor Fever Stop: 09/21/22 20:37 Last Admin: 08/26/22 21:40 Dose: 650 mg Al Hydrox/Mg Hydrox/Simethicone (Aluminum/Magnesium Susp 30 Ml Udc) 30 ml PO Q4H PRN PRN Reason: GI Upset Stop: 09/21/22 20:37 Bismuth Subsalicylate (Bismuth Subsalicylate Liqd 236 Ml) 15 ml PO PRN PRN PRN Reason: Loose Stool Stop: 09/21/22 20:37 Hydroxyzine HCl (Hydroxyzine Hcl 25 Mg Tab) 50 mg PO HSZ PRN PRN Reason: Insomnia Stop: 09/21/22 20:37 Last Admin: 08/24/22 22:19 Dose: 50 mg Hydroxyzine HCl (Hydroxyzine Hcl 25 Mg Tab) 25 mg PO Q4H PRN PRN Reason: Anxiety Stop: 09/21/22 20:37 Lorazepam (Lorazepam 1 Mg Tab) 1 mg PO TID PRN PRN Reason: Anxiety/Agitation Stop: 09/24/22 10:52 Last Admin: 08/26/22 07:10 Dose: 1 mg Lorazepam (Lorazepam 0.5 Mg Tab) 0.5 mg PO TID CATHY Stop: 09/25/22 13:59 Last Admin: 08/27/22 07:55 Dose: 0.5 mg Magnesium Hydroxide (Magnesium Hydroxide Susp 30 Ml Udc) 30 ml PO DAILY PRN PRN Reason: Constipation Stop: 09/21/22 20:37 Olanzapine (Olanzapine 5 Mg Tablet) 5 mg PO TID PRN PRN Reason: Agitation Anxiety Stop: 09/21/22 21:29 Last Admin: 08/26/22 08:33 Dose: 5 mg Olanzapine (Olanzapine 10 Mg Tab) 10 mg PO HS CATHY Stop: 09/24/22 21:59 Last Admin: 08/26/22 21:03 Dose: 10 mg Olanzapine (Olanzapine 10 Mg/2.1 Ml Sdv) 10 mg IM DAILY PRN PRN Reason: Agitation Stop: 09/25/22 08:59 Olanzapine (Olanzapine 5 Mg Tablet) 5 mg PO QAM CATHY Stop: 09/26/22 08:59 Last Admin: 08/27/22 07:55 Dose: 5 mg Sodium Chloride (Sodium Chloride 0.65% Na Soln 45 Ml ([place])) 1 - 2 sprays NA PRN PRN PRN Reason: Nasal Dryness/Congestion Stop: 09/21/22 20:37 Mental Health & Subst Abuse Tx Therapist Name of Therapist: Hx - none currently Co Pilot Name of Co Pilot: None Post Discharge Appointments Primary Care Physician Name Of Family Doctor/PCP: CRISPIN
[2022-08-27] MEDS: OLANZapine 5 MG TABLET PO PRN (15:13)
[2022-08-27] MEDS: LORazepam 1 MG TAB PO PRN (15:14)
[2022-08-27] MEDS: OLANZapine 10 MG TAB PO SCH (20:58)
[2022-08-28] MEDS: LORazepam 0.5 MG TAB PO SCH ×2 (08:36→13:25)
[2022-08-28] MEDS: OLANZapine 5 MG TABLET PO SCH ×3 (08:36→21:29)
[2022-08-28] MEDS: OLANZapine 5 MG TABLET PO PRN (13:25)
--- NOTE | 2022-08-28 15:11 | Psychiatric Progress Note ---
Date of Service August 28, 2022 Impression / Recommendations Impression Chloé is a 21 year old woman and [employer] senior with a history of depression who was admitted for lack of po intake, poor sleep, bizarre disorganized behaviors and statements of SI. Diagnostically consistent with unspecified psychosis with a broad differential including: substance-induced psychosis vs mixed episode of bipolar affective disorder vs primary psychotic disorder vs MDD with psychotic features vs underlying medical issue (elevated WBC but vitals stable and ED provider felt no concerning medical issues). UA was positive for ketones which supports concerns about her recent lack of po intake. She is deemed unstable and requires psychiatric hospitalization for diagnostic clarification, safety and stabilization, medication management and development of further coping skills. She was initially on a 302 commitment, 303 commitment starting on 08/25/2022. 08/28/2022: Reclusive to her room most of the time. Was again up most of the night with the light on in her room due to her persecutory fears. Has required multiple PRN doses of olanzapine. Avoided speaking with me. 08/27/2022: Remains frightened and delusional - last night was up reporting people in her room. During the day yesterday she several times reported "nightmares" despite not having slept. She was unreceptive to clarification that she's been hallucinating. Continues to require PRN doses of olanzapine, so scheduled dose has been being adjusted to minimize the need for this. She has been tolerating these increased doses. 08/26/2022: I met with pt along with RN due to her fears of men (or at least "a man"). Psychotic last night, ringing call medley due to "people in the room". Continues to count under her breath very often. Has remained very disorganized. E.g., came to the nurses' station wrapped in a sheet but otherwise naked, saying she didn't know how to get dressed. Some potentially very risky behavior including jumping over the stationary bike. Both pt and staff think olanzapine and lorazepam administered together this morning have helped quell the anxiety to a degree. She's required multiple PRN doses of olanzapine. No side effects have been noted attributable to medications. 08/25/2022: Ongoing psychosis with significant disorganization, paranoia, odd behaviors. Sleep was very poor last night with increased delusions and seemed to have visual hallucinations vs paranoia about someone being in her bathroom. Ongoing persecutory delusions today. Postured aggressively toward the counselor last night. I spent 35 minutes completing 303 commitment paperwork and attending and participating in the 303 hearing. 303 commitment was granted due to risk of harm to others and inability to attend to self-care needs. No side effects from olanzapine so will continue with dose titration. Also started ativan prn to help with extreme anxiety related to persecutory delusions. (1) Substance-induced psychotic disorder: (2) Marijuana use: Plan 08/28/2022: * Increase olanzapine to 5 mg QAM & QPM and 15 mg QHS, continue to titrate based on PRN use * Continue olanzapine 5 mg PO/IM BID PRN psychosis * Increase lorazepam to 1 mg TID 1 mg * Continue lorazepam 1 mg TID PRN anxiety * A private room remains medically necessary for the safety of self and others. 08/27/2022: * Continue olanzapine 5 mg QAM & 10 mg QHS, continue to titrate based on PRN use * Continue olanzapine 5 mg PO/IM BID PRN psychosis * Add lorazepam 0.5 mg TID * Continue lorazepam 1 mg TID PRN anxiety * A private room remains medically necessary for the safety of self and others. 08/26/2022: * Increase olanzapine to 5 mg QAM & 10 mg QHS, continue to titrate based on PRN use * Continue olanzapine 5 mg PO/IM BID PRN psychosis * Continue lorazepam 1 mg TID PRN anxiety * A private room remains medically necessary for the safety of self and others. 08/25/2022: Consolidate to olanzapine 10mg HS with 5mg TID prn for psychosis/agitation. Now on 303 commitment. 08/24/2022: Continue olanzapine 5mg BID and additional 5mg bid prn for psychosis/agitation 08/23/2022: The patient was admitted to [facility] ([facility] unit) on q15 min checks (behavioral with suicide precautions) for safety. The patient will participate in group, recreational, and milieu therapies and will be offered additional individual and family sessions as clinically appropriate. -Start zyprexa 5mg po BID -Continue to hold possible prior to admission Pristiq given concerns for possible lacho/mixed episode Inventory Assets Strengths: supportive relationships, family support, [employer] student Needs: safety and stabilization, medication adjustment, additional coping skills, increased outpatient services Suicide Risk Level Suicide Risk Level: High-Moderate (q15 min suicide checks) (bizarre behaviors with reports of recent SI prior to admission but feels safe talking to the nurses if she feels in need of further support) Risk Factors Assessment Male: No : Yes Do You Have Access To A Gun?: No (none known but will need to verify once mental status improves) Health Problems: No Mental Health Diagnoses: Yes Substance Use Disorders: Yes Protective Factors Assessment Employed: No Stable Relationships: Yes Supportive Family: Yes Interval History Identifying Information CHLOÉ LEWIS is a 21-year-old woman 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 Chief Complaint "I don't want to talk". Review of Systems Sleep Information Total Hours of Sleep: 0.5 Sleep Comments: Awake all night - paranoid and sat in her room with the light on Meal Information Percent Meal Consumed - Breakfast: 100 Percent Meal Consumed - Lunch: 100 Percent Meal Consumed - Dinner: 100 Nutrition Comment: Slept throught supper but ate dinner at snack time Subjective Subjective Patient was seen & assessed and interval progress reviewed with nursing and social work Physical Exam Psychiatric Orientation: alert, oriented to person and oriented to place Apperance: appropriately dressed and + disheveled Eye Contact: + poor eye contact Motor Behavior: + psychomotor agitation Speech: normal rate/rhythm/volume of speech Affect: + anxious affect and + labile affect Mood: + depressed mood and + anxious mood Thought Process: + thought blocking and + incoherent thought process Thought Content: + delusions (persecutory ) and + persecution Suicidal Thoughts: denies suicidal plan and denies suicidal intent; + reports suicidal thoughts (unable to assess today, reportedly endorsed SI prior to admission ) Homicidal Thoughts: denies homicidal thoughts Hallucinations: + auditory hallucinations and + visual hallucinations Cognition: language grossly intact; + recent memory not intact, + remote memory not intact and + attention not intact Estimated Intelligence: consistent with education level Insight: + severely impaired insight Judgment: + severely impaired judgement Vital Signs (Past 24 Hours) Last Vital Signs Temp 37 C 08/28/22 08:35 Pulse 101 H 08/28/22 08:35 Resp 16 08/28/22 08:35 BP 130/84 08/28/22 08:35 Pulse Ox 97 08/22/22 17:26 O2 Del Method Room Air 08/22/22 21:37 Results & Data ([facility]) Current Inpatient Medications Current Inpatient Medications: Current Inpatient Medications Acetaminophen (Acetaminophen 325 Mg Tab) 650 mg PO Q4H PRN PRN Reason: Headache or Minor Fever Stop: 09/21/22 20:37 Last Admin: 08/26/22 21:40 Dose: 650 mg Al Hydrox/Mg Hydrox/Simethicone (Aluminum/Magnesium Susp 30 Ml Udc) 30 ml PO Q4H PRN PRN Reason: GI Upset Stop: 09/21/22 20:37 Bismuth Subsalicylate (Bismuth Subsalicylate Liqd 236 Ml) 15 ml PO PRN PRN PRN Reason: Loose Stool Stop: 09/21/22 20:37 Hydroxyzine HCl (Hydroxyzine Hcl 25 Mg Tab) 50 mg PO HSZ PRN PRN Reason: Insomnia Stop: 09/21/22 20:37 Last Admin: 08/24/22 22:19 Dose: 50 mg Hydroxyzine HCl (Hydroxyzine Hcl 25 Mg Tab) 25 mg PO Q4H PRN PRN Reason: Anxiety Stop: 09/21/22 20:37 Lorazepam (Lorazepam 1 Mg Tab) 1 mg PO TID PRN PRN Reason: Anxiety/Agitation Stop: 09/24/22 10:52 Last Admin: 08/27/22 15:14 Dose: 1 mg Lorazepam (Lorazepam 0.5 Mg Tab) 0.5 mg PO TID CATHY Stop: 09/25/22 13:59 Last Admin: 08/28/22 13:25 Dose: 0.5 mg Magnesium Hydroxide (Magnesium Hydroxide Susp 30 Ml Udc) 30 ml PO DAILY PRN PRN Reason: Constipation Stop: 09/21/22 20:37 Olanzapine (Olanzapine 5 Mg Tablet) 5 mg PO TID PRN PRN Reason: Agitation Anxiety Stop: 09/21/22 21:29 Last Admin: 08/28/22 13:25 Dose: 5 mg Olanzapine (Olanzapine 10 Mg Tab) 10 mg PO HS CATHY Stop: 09/24/22 21:59 Last Admin: 08/27/22 20:58 Dose: 10 mg Olanzapine (Olanzapine 10 Mg/2.1 Ml Sdv) 10 mg IM DAILY PRN PRN Reason: Agitation Stop: 09/25/22 08:59 Olanzapine (Olanzapine 5 Mg Tablet) 5 mg PO QAM CATHY Stop: 09/26/22 08:59 Last Admin: 08/28/22 08:36 Dose: 5 mg Sodium Chloride (Sodium Chloride 0.65% Na Soln 45 Ml ([place])) 1 - 2 sprays NA PRN PRN PRN Reason: Nasal Dryness/Congestion Stop: 09/21/22 20:37 Mental Health & Subst Abuse Tx Therapist Name of Therapist: Hx - none currently Teletypist Name of Teletypist: None Post Discharge Appointments Primary Care Physician Name Of Family Doctor/PCP: CRISPIN
[2022-08-28] MEDS: LORazepam 1 MG TAB PO SCH (21:28)
[2022-08-28] MEDS: OLANZapine 10 MG TAB PO SCH (21:28)
[2022-08-29] MEDS: OLANZapine 5 MG TABLET PO SCH (07:23)
[2022-08-29] MEDS: LORazepam 1 MG TAB PO SCH ×3 (07:28→21:10)
--- NOTE | 2022-08-29 08:41 | Psychiatric Progress Note ---
Date of Service August 29, 2022 Impression / Recommendations Impression Allyssa is a 21 year old woman and [employer] senior with a history of depression who was admitted for lack of po intake, poor sleep, bizarre disorganized behaviors and statements of SI. Diagnostically consistent with unspecified psychosis with a broad differential including: substance-induced psychosis vs mixed episode of bipolar affective disorder vs primary psychotic disorder vs MDD with psychotic features vs underlying medical issue (elevated WBC but vitals stable and ED provider felt no concerning medical issues). UA was positive for ketones which supports concerns about her recent lack of po intake. She is deemed unstable and requires psychiatric hospitalization for diagnostic clarification, safety and stabilization, medication management and development of further coping skills. She was initially on a 302 commitment, 303 commitment starting on 08/25/2022. 08/29/2022: Pt charged the nursing station yelling "Stop it, Xiang!" this morning. She yet again spent most of the night sitting in her room with the light on with a blanket over her head. On rounds this morning sits in the dining area with a blanket wrapped around her head. She avoided eye contact and did not speak or respond to any questions. Previous to this, I observed her leaving her room several times (sometimes with the blanket, sometimes without it), walking about 3 meters out into the amor, looking around, then retreating back into her room. She had to be moved to open-door seclusion for a time due to her disorganized and aggressive behavior. At this point she's been taking about 40 mg olanzapine per day counting scheduled and PRN doses with little evidence of benefit. In fact, her psychosis seems to have been worsening. There has been little evidence of response, positive or negative, to scheduled lorazepam, which was increased yesterday to 1 mg TID. 08/28/2022: Reclusive to her room most of the time. Was again up most of the night with the light on in her room due to her persecutory fears. Has required multiple PRN doses of olanzapine. Avoided speaking with me. 08/27/2022: Remains frightened and delusional - last night was up reporting people in her room. During the day yesterday she several times reported "nightmares" despite not having slept. She was unreceptive to clarification that she's been hallucinating. Continues to require PRN doses of olanzapine, so scheduled dose has been being adjusted to minimize the need for this. She has been tolerating these increased doses. 08/26/2022: I met with pt along with RN due to her fears of men (or at least "a man"). Psychotic last night, ringing call medley due to "people in the room". Continues to count under her breath very often. Has remained very disorganized. E.g., came to the nurses' station wrapped in a sheet but otherwise naked, saying she didn't know how to get dressed. Some potentially very risky behavior including jumping over the stationary bike. Both pt and staff think olanzapine and lorazepam administered together this morning have helped quell the anxiety to a degree. She's required multiple PRN doses of olanzapine. No side effects have been noted attributable to medications. 08/25/2022: Ongoing psychosis with significant disorganization, paranoia, odd behaviors. Sleep was very poor last night with increased delusions and seemed to have visual hallucinations vs paranoia about someone being in her bathroom. Ongoing persecutory delusions today. Postured aggressively toward the counselor last night. I spent 35 minutes completing 303 commitment paperwork and attending and participating in the 303 hearing. 303 commitment was granted due to risk of harm to others and inability to attend to self-care needs. No side effects from olanzapine so will continue with dose titration. Also started ativan prn to help with extreme anxiety related to persecutory delusions. (1) Substance-induced psychotic disorder: (2) Marijuana use: Plan 08/29/2022: * discontinue olanzapine, both scheduled and PRN * start haloperidol 5 mg PO TID * start haloperidol 5 mg PO/IM PRN psychosis * contineu lorazepam 1 mg TID 1 mg * continue lorazepam 1 mg TID PRN anxiety * a private room remains medically necessary for the safety of self and others. 08/28/2022: * Increase olanzapine to 5 mg QAM & QPM and 15 mg QHS, continue to titrate based on PRN use * Continue olanzapine 5 mg PO/IM BID PRN psychosis * Increase lorazepam to 1 mg TID 1 mg * Continue lorazepam 1 mg TID PRN anxiety * A private room remains medically necessary for the safety of self and others. 08/27/2022: * Continue olanzapine 5 mg QAM & 10 mg QHS, continue to titrate based on PRN use * Continue olanzapine 5 mg PO/IM BID PRN psychosis * Add lorazepam 0.5 mg TID * Continue lorazepam 1 mg TID PRN anxiety * A private room remains medically necessary for the safety of self and others. 08/26/2022: * Increase olanzapine to 5 mg QAM & 10 mg QHS, continue to titrate based on PRN use * Continue olanzapine 5 mg PO/IM BID PRN psychosis * Continue lorazepam 1 mg TID PRN anxiety * A private room remains medically necessary for the safety of self and others. 08/25/2022: Consolidate to olanzapine 10mg HS with 5mg TID prn for psychosis/agitation. Now on 303 commitment. 08/24/2022: Continue olanzapine 5mg BID and additional 5mg bid prn for psychosis/agitation 08/23/2022: The patient was admitted to the [facility] ([facility]) on q15 min checks (behavioral with suicide precautions) for safety. The patient will participate in group, recreational, and milieu therapies and will be offered additional individual and family sessions as clinically appropriate. -Start zyprexa 5mg po BID -Continue to hold possible prior to admission Pristiq given concerns for possible lacho/mixed episode Inventory Assets Strengths: supportive relationships, family support, [employer] student Needs: safety and stabilization, medication adjustment, additional coping skills, increased outpatient services Suicide Risk Level Suicide Risk Level: High-Moderate (q15 min suicide checks) (bizarre behaviors with reports of recent SI prior to admission but feels safe talking to the nurses if she feels in need of further support) Risk Factors Assessment Male: No : Yes Do You Have Access To A Gun?: No (none known but will need to verify once mental status improves) Health Problems: No Mental Health Diagnoses: Yes Substance Use Disorders: Yes Protective Factors Assessment Employed: No Stable Relationships: Yes Supportive Family: Yes Interval History Identifying Information ALLYSSA LEWIS is a 21-year-old woman 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 Chief Complaint "No". Review of Systems Sleep Information Total Hours of Sleep: 5 Sleep Comments: Awake all night - paranoid and sat in her room with the light on Meal Information Percent Meal Consumed - Breakfast: 100 Percent Meal Consumed - Lunch: 100 Percent Meal Consumed - Dinner: 90 Nutrition Comment: Slept throught supper but ate dinner at snack time Subjective Subjective Patient was seen & assessed and interval progress reviewed with nursing and social work Physical Exam Psychiatric Orientation: alert, oriented to person and oriented to place Apperance: appropriately dressed and + disheveled Eye Contact: + poor eye contact Motor Behavior: + psychomotor agitation Speech: normal rate/rhythm/volume of speech Affect: + anxious affect Mood: + anxious mood Thought Process: + thought blocking, + looseness of associations and + incoherent thought process Thought Content: + delusions (persecutory ) and + persecution Suicidal Thoughts: denies suicidal plan and denies suicidal intent; + reports s uicidal thoughts (unable to assess today, reportedly endorsed SI prior to admission ) Homicidal Thoughts: denies homicidal thoughts Hallucinations: + auditory hallucinations and + visual hallucinations Cognition: language grossly intact; + recent memory not intact, + remote memory not intact and + attention not intact Estimated Intelligence: consistent with education level Insight: + severely impaired insight Judgment: + severely impaired judgement Vital Signs (Past 24 Hours) Last Vital Signs Temp 37.1 C 08/28/22 20:00 Pulse 101 H 08/28/22 08:35 Resp 16 08/28/22 08:35 BP 130/84 08/28/22 08:35 Pulse Ox 97 08/22/22 17:26 O2 Del Method Room Air 08/22/22 21:37 Results & Data ([facility]) Current Inpatient Medications Current Inpatient Medications: Current Inpatient Medications Acetaminophen (Acetaminophen 325 Mg Tab) 650 mg PO Q4H PRN PRN Reason: Headache or Minor Fever Stop: 09/21/22 20:37 Last Admin: 08/26/22 21:40 Dose: 650 mg Al Hydrox/Mg Hydrox/Simethicone (Aluminum/Magnesium Susp 30 Ml Udc) 30 ml PO Q4H PRN PRN Reason: GI Upset Stop: 09/21/22 20:37 Bismuth Subsalicylate (Bismuth Subsalicylate Liqd 236 Ml) 15 ml PO PRN PRN PRN Reason: Loose Stool Stop: 09/21/22 20:37 Hydroxyzine HCl (Hydroxyzine Hcl 25 Mg Tab) 50 mg PO HSZ PRN PRN Reason: Insomnia Stop: 09/21/22 20:37 Last Admin: 08/24/22 22:19 Dose: 50 mg Hydroxyzine HCl (Hydroxyzine Hcl 25 Mg Tab) 25 mg PO Q4H PRN PRN Reason: Anxiety Stop: 09/21/22 20:37 Lorazepam (Lorazepam 1 Mg Tab) 1 mg PO TID PRN PRN Reason: Anxiety/Agitation Stop: 09/24/22 10:52 Last Admin: 08/27/22 15:14 Dose: 1 mg Lorazepam (Lorazepam 1 Mg Tab) 1 mg PO TID CATHY Stop: 09/27/22 20:59 Last Admin: 08/29/22 07:28 Dose: 1 mg Magnesium Hydroxide (Magnesium Hydroxide Susp 30 Ml Udc) 30 ml PO DAILY PRN PRN Reason: Constipation Stop: 09/21/22 20:37 Olanzapine (Olanzapine 5 Mg Tablet) 5 mg PO TID PRN PRN Reason: Agitation Anxiety Stop: 09/21/22 21:29 Last Admin: 08/28/22 13:25 Dose: 5 mg Olanzapine (Olanzapine 10 Mg Tab) 10 mg PO HS CATHY Stop: 09/24/22 21:59 Last Admin: 08/28/22 21:28 Dose: 10 mg Olanzapine (Olanzapine 10 Mg/2.1 Ml Sdv) 10 mg IM DAILY PRN PRN Reason: Agitation Stop: 09/25/22 08:59 Olanzapine (Olanzapine 5 Mg Tablet) 5 mg PO TID CATHY Stop: 09/27/22 15:14 Last Admin: 08/29/22 07:23 Dose: 5 mg Sodium Chloride (Sodium Chloride 0.65% Na Soln 45 Ml ([place])) 1 - 2 sprays NA PRN PRN PRN Reason: Nasal Dryness/Congestion Stop: 09/21/22 20:37 Mental Health & Subst Abuse Tx Therapist Name of Therapist: Hx - none currently Scrubber Machine Tender Name of Scrubber Machine Tender: None Post Discharge Appointments Primary Care Physician Name Of Family Doctor/PCP: Delfino
[2022-08-29] MEDS ORDERED: haloperidoL 5 MG TAB PO PRN (08:46)
[2022-08-29] MEDS ORDERED: HALOPERIDOL LACTATE 5 MG/ML 1 ML VIAL IM PRN (08:46)
[2022-08-29] MEDS: haloperidoL 5 MG TAB PO SCH ×3 (09:11→21:09)
[2022-08-30] MEDS: haloperidoL 5 MG TAB PO SCH ×3 (08:28→19:57)
[2022-08-30] MEDS: LORazepam 1 MG TAB PO SCH ×3 (08:29→19:57)
--- NOTE | 2022-08-30 10:44 | Psychiatric Progress Note ---
Date of Service August 30, 2022 Impression / Recommendations Impression Allyssa is a 21 year old woman and [employer] senior with a history of depression who was admitted for lack of po intake, poor sleep, bizarre disorganized behaviors and statements of SI. Diagnostically consistent with unspecified psychosis with a broad differential including: substance-induced psychosis vs mixed episode of bipolar affective disorder vs primary psychotic disorder vs MDD with psychotic features vs underlying medical issue (elevated WBC but vitals stable and ED provider felt no concerning medical issues). UA was positive for ketones which supports concerns about her recent lack of po intake. She is deemed unstable and requires psychiatric hospitalization for diagnostic clarification, safety and stabilization, medication management and development of further coping skills. She was initially on a 302 commitment, 303 commitment starting on 08/25/2022. 08/30/2022: Substantial improvement seen since change from olanzapine to haloperidol. For example, I was sent this message: "I met with Allyssa and she was able to review her treatment plan for me for the first time. She told me that "I feel like a person" and that she is proud of herself. She seemed to not realize that she has been here for 8 days and that she feels like it has been much shorter. Allyssa does not remember meeting with you/Dr. Hall, or many other staff, since being here. She stated that she is hoping to continue to improve and agreed with her 4-6 more days here. Allyssa also stated that she recognizes that she was "very" paranoid and feeling unsafe upon her admission". Pt has been able not only to sit through but also to participate in a group. She has been eating meals without assistance and slept better last night. She feels less frightened and distracted. No adverse effects of the current medications are apparent. 08/29/2022: Pt charged the nursing station yelling "Stop it, Xiang!" this morning. She yet again spent most of the night sitting in her room with the light on with a blanket over her head. On rounds this morning sits in the dining area with a blanket wrapped around her head. She avoided eye contact and did not speak or respond to any questions. Previous to this, I observed her leaving her room several times (sometimes with the blanket, sometimes without it), walking about 3 meters out into the amor, looking around, then retreating back into her room. She had to be moved to open-door seclusion for a time due to her disorganized and aggressive behavior. At this point she's been taking about 40 mg olanzapine per day counting scheduled and PRN doses with little evidence of benefit. In fact, her psychosis seems to have been worsening. There has been little evidence of response, positive or negative, to scheduled lorazepam, which was increased yesterday to 1 mg TID. 08/28/2022: Reclusive to her room most of the time. Was again up most of the night with the light on in her room due to her persecutory fears. Has required multiple PRN doses of olanzapine. Avoided speaking with me. 08/27/2022: Remains frightened and delusional - last night was up reporting people in her room. During the day yesterday she several times reported "nightmares" despite not having slept. She was unreceptive to clarification that she's been hallucinating. Continues to require PRN doses of olanzapine, so scheduled dose has been being adjusted to minimize the need for this. She has been tolerating these increased doses. 08/26/2022: I met with pt along with RN due to her fears of men (or at least "a man"). Psychotic last night, ringing call medley due to "people in the room". Continues to count under her breath very often. Has remained very disorganized. E.g., came to the nurses' station wrapped in a sheet but otherwise naked, saying she didn't know how to get dressed. Some potentially very risky behavior including jumping over the stationary bike. Both pt and staff think olanzapine and lorazepam administered together this morning have helped quell the anxiety to a degree. She's required multiple PRN doses of olanzapine. No side effects have been noted attributable to medications. 08/25/2022: Ongoing psychosis with significant disorganization, paranoia, odd behaviors. Sleep was very poor last night with increased delusions and seemed to have visual hallucinations vs paranoia about someone being in her bathroom. Ongoing persecutory delusions today. Postured aggressively toward the counselor last night. I spent 35 minutes completing 303 commitment paperwork and attending and participating in the 303 hearing. 303 commitment was granted due to risk of harm to others and inability to attend to self-care needs. No side effects from olanzapine so will continue with dose titration. Also started ativan prn to help with extreme anxiety related to persecutory delusions. (1) Substance-induced psychotic disorder: (2) Marijuana use: Plan 08/30/2022: discontinue olanzapine, both scheduled and PRN * continue haloperidol 5 mg PO TID * continue haloperidol 5 mg PO/IM PRN psychosis * continue lorazepam 1 mg TID 1 mg * continue lorazepam 1 mg TID PRN anxiety * a private room remains medically necessary for the safety of self and others. 08/29/2022: * discontinue olanzapine, both scheduled and PRN * start haloperidol 5 mg PO TID * start haloperidol 5 mg PO/IM PRN psychosis * contineu lorazepam 1 mg TID 1 mg * continue lorazepam 1 mg TID PRN anxiety * a private room remains medically necessary for the safety of self and others. 08/28/2022: * Increase olanzapine to 5 mg QAM & QPM and 15 mg QHS, continue to titrate based on PRN use * Continue olanzapine 5 mg PO/IM BID PRN psychosis * Increase lorazepam to 1 mg TID 1 mg * Continue lorazepam 1 mg TID PRN anxiety * A private room remains medically necessary for the safety of self and others. 08/27/2022: * Continue olanzapine 5 mg QAM & 10 mg QHS, continue to titrate based on PRN use * Continue olanzapine 5 mg PO/IM BID PRN psychosis * Add lorazepam 0.5 mg TID * Continue lorazepam 1 mg TID PRN anxiety * A private room remains medically necessary for the safety of self and others. 08/26/2022: * Increase olanzapine to 5 mg QAM & 10 mg QHS, continue to titrate based on PRN use * Continue olanzapine 5 mg PO/IM BID PRN psychosis * Continue lorazepam 1 mg TID PRN anxiety * A private room remains medically necessary for the safety of self and others. 08/25/2022: Consolidate to olanzapine 10mg HS with 5mg TID prn for psychosis/agitation. Now on 303 commitment. 08/24/2022: Continue olanzapine 5mg BID and additional 5mg bid prn for psychosis/agitation 08/23/2022: The patient was admitted to the [facility] (locked inpatient mental health unit) on q15 min checks (behavioral with suicide precautions) for safety. The patient will participate in group, recreational, and milieu therapies and will be offered additional individual and family sessions as clinically appropriate. -Start zyprexa 5mg po BID -Continue to hold possible prior to admission Pristiq given concerns for possible lacho/mixed episode Inventory Assets Strengths: supportive relationships, family support, [employer] student Needs: safety and stabilization, medication adjustment, additional coping skills, increased outpatient services Suicide Risk Level Suicide Risk Level: High-Moderate (q15 min suicide checks) (bizarre behaviors with reports of recent SI prior to admission but feels safe talking to the nurses if she feels in need of further support) Risk Factors Assessment Male: No : Yes Do You Have Access To A Gun?: No (none known but will need to verify once mental status improves) Health Problems: No Mental Health Diagnoses: Yes Substance Use Disorders: Yes Protective Factors Assessment Employed: No Stable Relationships: Yes Supportive Family: Yes Interval History Identifying Information ALLYSSA LEWIS is a 21-year-old woman 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 Chief Complaint "I can't be certain from my subjective experience what accounts for it, but I'm certainly feeling better". Review of Systems Sleep Information Total Hours of Sleep: 10.75 Meal Information Percent Meal Consumed - Breakfast: 90 Percent Meal Consumed - Lunch: 75 Percent Meal Consumed - Dinner: 90 Nutrition Comment: Ate a snack before lunch Subjective Subjective Patient was seen & assessed and interval progress reviewed with treatment team Physical Exam Psychiatric Orientation: alert, oriented to person, oriented to place and cooperative Apperance: appropriately dressed and appropriately groomed Eye Contact: + fair eye contact Motor Behavior: no abnormal motor movements Speech: normal rate/rhythm/volume of speech Affect: + constricted affect Mood: + depressed mood and + anxious mood Thought Process: + thought blocking and + looseness of associations Thought Content: + delusions (persecutory ) and + persecution Suicidal Thoughts: denies suicidal thoughts (unable to assess today, reportedly endorsed SI prior to admission ), denies suicidal plan and denies suicidal intent Homicidal Thoughts: denies homicidal thoughts Hallucinations: + auditory hallucinations and + visual hallucinations Cognition: remote memory grossly intact and language grossly intact; + recent memory not intact and + attention not intact Estimated Intelligence: consistent with education level Insight: + limited insight Judgment: + limited judgement Vital Signs (Past 24 Hours) Last Vital Signs Temp 36.9 C 08/29/22 20:00 Pulse 101 H 08/28/22 08:35 Resp 16 08/28/22 08:35 BP 130/84 08/28/22 08:35 Pulse Ox 97 08/22/22 17:26 O2 Del Method Room Air 08/22/22 21:37 Results & Data ([facility]) Current Inpatient Medications Current Inpatient Medications: Current Inpatient Medications Acetaminophen (Acetaminophen 325 Mg Tab) 650 mg PO Q4H PRN PRN Reason: Headache or Minor Fever Stop: 09/21/22 20:37 Last Admin: 08/26/22 21:40 Dose: 650 mg Al Hydrox/Mg Hydrox/Simethicone (Aluminum/Magnesium Susp 30 Ml Udc) 30 ml PO Q4H PRN PRN Reason: GI Upset Stop: 09/21/22 20:37 Bismuth Subsalicylate (Bismuth Subsalicylate Liqd 236 Ml) 15 ml PO PRN PRN PRN Reason: Loose Stool Stop: 09/21/22 20:37 Haloperidol (Haloperidol 5 Mg Tab) 5 mg PO TID CATHY Stop: 09/28/22 08:59 Last Admin: 08/30/22 08:28 Dose: 5 mg Haloperidol (Haloperidol 5 Mg Tab) 5 mg PO Q6 PRN PRN Reason: psychosis or lacho Stop: 09/28/22 08:45 Haloperidol Lactate (Haloperidol Lactate 5 Mg/Ml 1 Ml Vial) 5 mg IM Q6 PRN; Protocol PRN Reason: psychosis or lacho Stop: 09/28/22 08:45 Hydroxyzine HCl (Hydroxyzine Hcl 25 Mg Tab) 50 mg PO HSZ PRN PRN Reason: Insomnia Stop: 09/21/22 20:37 Last Admin: 08/24/22 22:19 Dose: 50 mg Hydroxyzine HCl (Hydroxyzine Hcl 25 Mg Tab) 25 mg PO Q4H PRN PRN Reason: Anxiety Stop: 09/21/22 20:37 Lorazepam (Lorazepam 1 Mg Tab) 1 mg PO TID PRN PRN Reason: Anxiety/Agitation Stop: 09/24/22 10:52 Last Admin: 08/27/22 15:14 Dose: 1 mg Lorazepam (Lorazepam 1 Mg Tab) 1 mg PO TID CATHY Stop: 09/27/22 20:59 Last Admin: 08/30/22 08:29 Dose: 1 mg Magnesium Hydroxide (Magnesium Hydroxide Susp 30 Ml Udc) 30 ml PO DAILY PRN PRN Reason: Constipation Stop: 09/21/22 20:37 Sodium Chloride (Sodium Chloride 0.65% Na Soln 45 Ml ([place])) 1 - 2 sprays NA PRN PRN PRN Reason: Nasal Dryness/Congestion Stop: 09/21/22 20:37 Mental Health & Subst Abuse Tx Therapist Name of Therapist: Hx - none currently Geospatial Technologist Name of Geospatial Technologist: None Post Discharge Appointments Primary Care Physician Name Of Family Doctor/PCP: [email or web address]
[2022-08-31] MEDS: LORazepam 1 MG TAB PO SCH (09:12)
[2022-08-31] MEDS: haloperidoL 5 MG TAB PO SCH ×3 (09:12→21:13)
--- NOTE | 2022-08-31 14:42 | Psychiatric Progress Note ---
Date of Service August 31, 2022 Impression / Recommendations Impression Allyssa is a 21 year old woman and [employer] senior with a history of depression who was admitted for lack of po intake, poor sleep, bizarre disorganized behaviors and statements of SI. Diagnostically consistent with unspecified psychosis with a broad differential including: substance-induced psychosis vs mixed episode of bipolar affective disorder vs primary psychotic disorder vs MDD with psychotic features vs underlying medical issue (elevated WBC but vitals stable and ED provider felt no concerning medical issues). UA was positive for ketones which supports concerns about her recent lack of po intake. She is deemed unstable and requires psychiatric hospitalization for diagnostic clarification, safety and stabilization, medication management and development of further coping skills. She was initially on a 302 commitment, 303 commitment starting on 08/25/2022. 08/31/2022: Continues to do fairly well, though she's been a bit less engaged today. Sits in her room reading on approach, noting "it's not paranoia, I just got a little overwhelmed with all the noise". She denies any side effects attributable to medication, but I note reduced affect that could be a consequence of haloperidol. Although she denies sedation, lorazepam could account for her subdued demeanor. Pt says she was able to sleep more last night. No new or worse symptoms 08/30/2022: Substantial improvement seen since change from olanzapine to haloperidol. For example, I was sent this message: "I met with Allyssa and she was able to review her treatment plan for me for the first time. She told me that "I feel like a person" and that she is proud of herself. She seemed to not realize that she has been here for 8 days and that she feels like it has been much shorter. Allyssa does not remember meeting with you/Dr. Hall, or many other staff, since being here. She stated that she is hoping to continue to improve and agreed with her 4-6 more days here. Allsysa also stated that she recognizes that she was "very" paranoid and feeling unsafe upon her admission". Pt has been able not only to sit through but also to participate in a group. She has been eating meals without assistance and slept better last night. She feels less frightened and distracted. No adverse effects of the current medications are apparent. 08/29/2022: Pt charged the nursing station yelling "Stop it, Xiang!" this morning. She yet again spent most of the night sitting in her room with the light on with a blanket over her head. On rounds this morning sits in the dining area with a blanket wrapped around her head. She avoided eye contact and did not speak or respond to any questions. Previous to this, I observed her leaving her room several times (sometimes with the blanket, sometimes without it), walking about 3 meters out into the amor, looking around, then retreating back into her room. She had to be moved to open-door seclusion for a time due to her disorganized and aggressive behavior. At this point she's been taking about 40 mg olanzapine per day counting scheduled and PRN doses with little evidence of benefit. In fact, her psychosis seems to have been worsening. There has been little evidence of response, positive or negative, to scheduled lorazepam, which was increased yesterday to 1 mg TID. 08/28/2022: Reclusive to her room most of the time. Was again up most of the night with the light on in her room due to her persecutory fears. Has required multiple PRN doses of olanzapine. Avoided speaking with me. 08/27/2022: Remains frightened and delusional - last night was up reporting people in her room. During the day yesterday she several times reported "nightmares" despite not having slept. She was unreceptive to clarification that she's been hallucinating. Continues to require PRN doses of olanzapine, so scheduled dose has been being adjusted to minimize the need for this. She has been tolerating these increased doses. 08/26/2022: I met with pt along with RN due to her fears of men (or at least "a man"). Psychotic last night, ringing call medley due to "people in the room". Continues to count under her breath very often. Has remained very disorganized. E.g., came to the nurses' station wrapped in a sheet but otherwise naked, saying she didn't know how to get dressed. Some potentially very risky behavior including jumping over the stationary bike. Both pt and staff think olanzapine and lorazepam administered together this morning have helped quell the anxiety to a degree. She's required multiple PRN doses of olanzapine. No side effects have been noted attributable to medications. 08/25/2022: Ongoing psychosis with significant disorganization, paranoia, odd behaviors. Sleep was very poor last night with increased delusions and seemed to have visual hallucinations vs paranoia about someone being in her bathroom. Ongoing persecutory delusions today. Postured aggressively toward the counselor last night. I spent 35 minutes completing 303 commitment paperwork and attending and participating in the 303 hearing. 303 commitment was granted due to risk of harm to others and inability to attend to self-care needs. No side effects from olanzapine so will continue with dose titration. Also started ativan prn to help with extreme anxiety related to persecutory delusions. (1) Substance-induced psychotic disorder: (2) Marijuana use: Plan 08/31/2022: * continue haloperidol 5 mg PO TID * continue haloperidol 5 mg PO/IM PRN psychosis * reduce lorazepam to 1 mg QHS only * continue lorazepam 1 mg TID PRN anxiety * a private room remains medically necessary for the safety of self and others. 08/30/2022: * continue haloperidol 5 mg PO TID * continue haloperidol 5 mg PO/IM PRN psychosis * continue lorazepam 1 mg TID * continue lorazepam 1 mg TID PRN anxiety * a private room remains medically necessary for the safety of self and others. 08/29/2022: * discontinue olanzapine, both scheduled and PRN * start haloperidol 5 mg PO TID * start haloperidol 5 mg PO/IM PRN psychosis * contineu lorazepam 1 mg TID * continue lorazepam 1 mg TID PRN anxiety * a private room remains medically necessary for the safety of self and others. 08/28/2022: * Increase olanzapine to 5 mg QAM & QPM and 15 mg QHS, continue to titrate based on PRN use * Continue olanzapine 5 mg PO/IM BID PRN psychosis * Increase lorazepam to 1 mg TID * Continue lorazepam 1 mg TID PRN anxiety * A private room remains medically necessary for the safety of self and others. 08/27/2022: * Continue olanzapine 5 mg QAM & 10 mg QHS, continue to titrate based on PRN use * Continue olanzapine 5 mg PO/IM BID PRN psychosis * Add lorazepam 0.5 mg TID * Continue lorazepam 1 mg TID PRN anxiety * A private room remains medically necessary for the safety of self and others. 08/26/2022: * Increase olanzapine to 5 mg QAM & 10 mg QHS, continue to titrate based on PRN use * Continue olanzapine 5 mg PO/IM BID PRN psychosis * Continue lorazepam 1 mg TID PRN anxiety * A private room remains medically necessary for the safety of self and others. 08/25/2022: Consolidate to olanzapine 10mg HS with 5mg TID prn for psychosis/agitation. Now on 303 commitment. 08/24/2022: Continue olanzapine 5mg BID and additional 5mg bid prn for psychosis/agitation 08/23/2022: The patient [facility]) on q15 min checks (behavioral with suicide precautions) for safety. The patient will participate in group, recreational, and milieu therapies and will be offered additional individual and family sessions as clinically appropriate. -Start zyprexa 5mg po BID -Continue to hold possible prior to admission Pristiq given concerns for possible lacho/mixed episode Inventory Assets Strengths: supportive relationships, family support, [employer] student Needs: safety and stabilization, medication adjustment, additional coping skills, increased outpatient services Suicide Risk Level Suicide Risk Level: High-Moderate (q15 min suicide checks) (bizarre behaviors with reports of recent SI prior to admission but feels safe talking to the nurses if she feels in need of further support) Risk Factors Assessment Male: No : Yes Do You Have Access To A Gun?: No (none known but will need to verify once mental status improves) Health Problems: No Mental Health Diagnoses: Yes Substance Use Disorders: Yes Protective Factors Assessment Employed: No Stable Relationships: Yes Supportive Family: Yes Interval History Identifying Information ALLYSSA LEWIS is a 21-year-old woman 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 Chief Complaint "I'm OK". Review of Systems Sleep Information Total Hours of Sleep: 7.25 Sleep Comments: pt on q-15 minute checks Meal Information Percent Meal Consumed - Breakfast: 100 Percent Meal Consumed - Lunch: 75 Percent Meal Consumed - Dinner: 100 Nutrition Comment: Ate a snack before lunch Subjective Subjective Patient was seen & assessed and interval progress reviewed with treatment team Physical Exam Psychiatric Orientation: alert, oriented to person, oriented to place and cooperative Apperance: appropriately dressed and appropriately groomed Eye Contact: + fair eye contact Motor Behavior: no abnormal motor movements Speech: normal rate/rhythm/volume of speech Affect: + constricted affect Mood: + anxious mood Thought Process: + thought blocking Thought Content: + persecution Suicidal Thoughts: denies suicidal thoughts, denies suicidal plan and denies suicidal intent Homicidal Thoughts: denies homicidal thoughts Hallucinations: + auditory hallucinations and + visual hallucinations Cognition: remote memory grossly intact and language grossly intact; + recent memory not intact and + attention not intact Estimated Intelligence: consistent with education level Insight: + limited insight Judgment: + limited judgement Vital Signs (Past 24 Hours) Last Vital Signs Temp 36.5 C 08/30/22 20:55 Pulse 107 H 08/30/22 10:44 Resp 18 08/30/22 10:44 BP 124/85 08/30/22 10:44 Pulse Ox 100 08/30/22 10:44 O2 Del Method Room Air 08/30/22 10:44 Results & Data ([facility]) Current Inpatient Medications Current Inpatient Medications: Current Inpatient Medications Acetaminophen (Acetaminophen 325 Mg Tab) 650 mg PO Q4H PRN PRN Reason: Headache or Minor Fever Stop: 09/21/22 20:37 Last Admin: 08/26/22 21:40 Dose: 650 mg Al Hydrox/Mg Hydrox/Simethicone (Aluminum/Magnesium Susp 30 Ml Udc) 30 ml PO Q4H PRN PRN Reason: GI Upset Stop: 09/21/22 20:37 Bismuth Subsalicylate (Bismuth Subsalicylate Liqd 236 Ml) 15 ml PO PRN PRN PRN Reason: Loose Stool Stop: 09/21/22 20:37 Haloperidol (Haloperidol 5 Mg Tab) 5 mg PO TID CATHY Stop: 09/28/22 08:59 Last Admin: 08/31/22 14:00 Dose: 5 mg Haloperidol (Haloperidol 5 Mg Tab) 5 mg PO Q6 PRN PRN Reason: psychosis or lacho Stop: 09/28/22 08:45 Last Admin: 08/30/22 11:07 Dose: 5 mg Haloperidol Lactate (Haloperidol Lactate 5 Mg/Ml 1 Ml Vial) 5 mg IM Q6 PRN; Protocol PRN Reason: psychosis or lacho Stop: 09/28/22 08:45 Hydroxyzine HCl (Hydroxyzine Hcl 25 Mg Tab) 50 mg PO HSZ PRN PRN Reason: Insomnia Stop: 09/21/22 20:37 Last Admin: 08/24/22 22:19 Dose: 50 mg Hydroxyzine HCl (Hydroxyzine Hcl 25 Mg Tab) 25 mg PO Q4H PRN PRN Reason: Anxiety Stop: 09/21/22 20:37 Lorazepam (Lorazepam 1 Mg Tab) 1 mg PO TID PRN PRN Reason: Anxiety/Agitation Stop: 09/24/22 10:52 Last Admin: 08/27/22 15:14 Dose: 1 mg Lorazepam (Lorazepam 1 Mg Tab) 1 mg PO HS CATHY Stop: 09/30/22 21:59 Magnesium Hydroxide (Magnesium Hydroxide Susp 30 Ml Udc) 30 ml PO DAILY PRN PRN Reason: Constipation Stop: 09/21/22 20:37 Sodium Chloride (Sodium Chloride 0.65% Na Soln 45 Ml ([place])) 1 - 2 sprays NA PRN PRN PRN Reason: Nasal Dryness/Congestion Stop: 09/21/22 20:37 Mental Health & Subst Abuse Tx Therapist Name of Therapist: Hx - none currently Sealer Operator Name of Sealer Operator: None Post Discharge Appointments Primary Care Physician Name Of Family Doctor/PCP: Delfino
[2022-08-31] MEDS ORDERED: LORazepam 1 MG TAB PO SCH (22:00)
[2022-09-01] MEDS: haloperidoL 5 MG TAB PO SCH ×3 (08:51→20:22)
--- NOTE | 2022-09-01 10:44 | Psychiatric Progress Note ---
Date of Service September 01, 2022 Impression / Recommendations Impression Allyssa is a 21 year old woman and [employer] senior with a history of depression who was admitted for lack of po intake, poor sleep, bizarre disorganized behaviors and statements of SI. Diagnostically consistent with unspecified psychosis with a broad differential including: substance-induced psychosis vs mixed episode of bipolar affective disorder vs primary psychotic disorder vs MDD with psychotic features vs underlying medical issue (elevated WBC but vitals stable and ED provider felt no concerning medical issues). UA was positive for ketones which supports concerns about her recent lack of po intake. She is deemed unstable and requires psychiatric hospitalization for diagnostic clarification, safety and stabilization, medication management and development of further coping skills. She was initially on a 302 commitment, 303 commitment starting on 08/25/2022. 09/01/2022: Pt slept late this morning then awoke distressed. She reports having dreamed of a bad man. Because she's previously reported "nightmares" that clearly represented hallucinations while awake, I strove to clarify that she was not experiencing any of this while awake. She says "it was just a bad dream and it wasn't real". However, she remains very distressed, tearful. Says she misses her dad and that her mom and weeps. This does appear more to represent sadness and anxiety and less to reflect psychosis. I'd reduced scheduled lorazepam yesterday out of concern that her having presented as subdued could represent sedation. However, I've encouraged her to use a PRN dose now. Depending on her response to that, an adjustment in her haloperidol dose might be warranted. Pt is at pains to let me know she does "not want to feel sedated", with which I told her I agree. 08/31/2022: Continues to do fairly well, though she's been a bit less engaged today. Sits in her room reading on approach, noting "it's not paranoia, I just got a little overwhelmed with all the noise". She denies any side effects attributable to medication, but I note reduced affect that could be a consequence of haloperidol. Although she denies sedation, lorazepam could account for her subdued demeanor. Pt says she was able to sleep more last night. No new or worse symptoms 08/30/2022: Substantial improvement seen since change from olanzapine to haloperidol. For example, I was sent this message: "I met with Allyssa and she was able to review her treatment plan for me for the first time. She told me that "I feel like a person" and that she is proud of herself. She seemed to not realize that she has been here for 8 days and that she feels like it has been much shorter. Allyssa does not remember meeting with you/Dr. Hall, or many other staff, since being here. She stated that she is hoping to continue to improve and agreed with her 4-6 more days here. Allyssa also stated that she recognizes that she was "very" paranoid and feeling unsafe upon her admission". Pt has been able not only to sit through but also to participate in a group. She has been eating meals without assistance and slept better last night. She feels less frightened and distracted. No adverse effects of the current medications are apparent. 08/29/2022: Pt charged the nursing station yelling "Stop it, Xiang!" this morning. She yet again spent most of the night sitting in her room with the light on with a blanket over her head. On rounds this morning sits in the dining area with a blanket wrapped around her head. She avoided eye contact and did not speak or respond to any questions. Previous to this, I observed her leaving her room several times (sometimes with the blanket, sometimes without it), walking about 3 meters out into the amor, looking around, then retreating back into her room. She had to be moved to open-door seclusion for a time due to her disorganized and aggressive behavior. At this point she's been taking about 40 mg olanzapine per day counting scheduled and PRN doses with little evidence of benefit. In fact, her psychosis seems to have been worsening. There has been little evidence of response, positive or negative, to scheduled lorazepam, which was increased yesterday to 1 mg TID. 08/28/2022: Reclusive to her room most of the time. Was again up most of the night with the light on in her room due to her persecutory fears. Has required multiple PRN doses of olanzapine. Avoided speaking with me. 08/27/2022: Remains frightened and delusional - last night was up reporting people in her room. During the day yesterday she several times reported "nightmares" despite not having slept. She was unreceptive to clarification that she's been hallucinating. Continues to require PRN doses of olanzapine, so scheduled dose has been being adjusted to minimize the need for this. She has been tolerating these increased doses. 08/26/2022: I met with pt along with RN due to her fears of men (or at least "a man"). Psychotic last night, ringing call medley due to "people in the room". Continues to count under her breath very often. Has remained very disorganized. E.g., came to the nurses' station wrapped in a sheet but otherwise naked, saying she didn't know how to get dressed. Some potentially very risky behavior including jumping over the stationary bike. Both pt and staff think olanzapine and lorazepam administered together this morning have helped quell the anxiety to a degree. She's required multiple PRN doses of olanzapine. No side effects have been noted attributable to medications. 08/25/2022: Ongoing psychosis with significant disorganization, paranoia, odd behaviors. Sleep was very poor last night with increased delusions and seemed to have visual hallucinations vs paranoia about someone being in her bathroom. Ongoing persecutory delusions today. Postured aggressively toward the counselor last night. I spent 35 minutes completing 303 commitment paperwork and attending and participating in the 303 hearing. 303 commitment was granted due to risk of harm to others and inability to attend to self-care needs. No side effects from olanzapine so will continue with dose titration. Also started ativan prn to help with extreme anxiety related to persecutory delusions. (1) Substance-induced psychotic disorder: (2) Marijuana use: Plan 09/01/2022: * continue haloperidol 5 mg PO TID - consider increase to 5 mg PO BID & 10 mg PO QHS * continue haloperidol 5 mg PO/IM PRN psychosis * continue lorazepam 1 mg QHS only * continue lorazepam 1 mg TID PRN anxiety * a private room remains medically necessary for the safety of self and others. 08/31/2022: * continue haloperidol 5 mg PO TID * continue haloperidol 5 mg PO/IM PRN psychosis * reduce lorazepam to 1 mg QHS only * continue lorazepam 1 mg TID PRN anxiety * a private room remains medically necessary for the safety of self and others. 08/30/2022: * continue haloperidol 5 mg PO TID * continue haloperidol 5 mg PO/IM PRN psychosis * continue lorazepam 1 mg TID * continue lorazepam 1 mg TID PRN anxiety * a private room remains medically necessary for the safety of self and others. 08/29/2022: * discontinue olanzapine, both scheduled and PRN * start haloperidol 5 mg PO TID * start haloperidol 5 mg PO/IM PRN psychosis * contineu lorazepam 1 mg TID * continue lorazepam 1 mg TID PRN anxiety * a private room remains medically necessary for the safety of self and others. 08/28/2022: * Increase olanzapine to 5 mg QAM & QPM and 15 mg QHS, continue to titrate based on PRN use * Continue olanzapine 5 mg PO/IM BID PRN psychosis * Increase lorazepam to 1 mg TID * Continue lorazepam 1 mg TID PRN anxiety * A private room remains medically necessary for the safety of self and others. 08/27/2022: * Continue olanzapine 5 mg QAM & 10 mg QHS, continue to titrate based on PRN use * Continue olanzapine 5 mg PO/IM BID PRN psychosis * Add lorazepam 0.5 mg TID * Continue lorazepam 1 mg TID PRN anxiety * A private room remains medically necessary for the safety of self and others. 08/26/2022: * Increase olanzapine to 5 mg QAM & 10 mg QHS, continue to titrate based on PRN use * Continue olanzapine 5 mg PO/IM BID PRN psychosis * Continue lorazepam 1 mg TID PRN anxiety * A private room remains medically necessary for the safety of self and others. 08/25/2022: Consolidate to olanzapine 10mg HS with 5mg TID prn for psychosis/agitation. Now on 303 commitment. 08/24/2022: Continue olanzapine 5mg BID and additional 5mg bid prn for psychosis/agitation 08/23/2022: The patient was admitted to the [facility] ([facility] unit) on q15 min checks (behavioral with suicide precautions) for safety. The patient will participate in group, recreational, and milieu therapies and will be offered additional individual and family sessions as clinically appropriate. -Start zyprexa 5mg po BID -Continue to hold possible prior to admission Pristiq given concerns for possible lacho/mixed episode Inventory Assets Strengths: supportive relationships, family support, [employer] student Needs: safety and stabilization, medication adjustment, additional coping skills, increased outpatient services Suicide Risk Level Suicide Risk Level: High-Moderate (q15 min suicide checks) (SI prior to admission but feels safe talking to the nurses if she feels in need of further support) Risk Factors Assessment Male: No : Yes Do You Have Access To A Gun?: No (none known but will need to verify once mental status improves) Health Problems: No Mental Health Diagnoses: Yes Substance Use Disorders: Yes Protective Factors Assessment Employed: No Stable Relationships: Yes Supportive Family: Yes Interval History Identifying Information ALLYSSA LEWIS is a 21-year-old woman 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 Chief Complaint "I dreamed about a bad man". Review of Systems Sleep Information Total Hours of Sleep: 6.5 Sleep Comments: pt on q-15 minute checks Meal Information Percent Meal Consumed - Breakfast: 100 Percent Meal Consumed - Lunch: 100 Percent Meal Consumed - Dinner: 90 Nutrition Comment: Ate a snack before lunch Subjective Subjective Patient was seen & assessed and interval progress reviewed with treatment team Physical Exam Psychiatric Orientation: alert, oriented to person, oriented to place and cooperative Apperance: appropriately dressed and appropriately groomed Eye Contact: + fair eye contact Motor Behavior: no abnormal motor movements Speech: normal rate/rhythm/volume of speech Affect: + tearful affect Mood: + anxious mood Thought Process: + thought blocking Thought Content: + persecution Suicidal Thoughts: denies suicidal thoughts, denies suicidal plan and denies suicidal intent Homicidal Thoughts: denies homicidal thoughts Cognition: remote memory grossly intact and language grossly intact Estimated Intelligence: consistent with education level Insight: + limited insight Judgment: + limited judgement Vital Signs (Past 24 Hours) Last Vital Signs Temp 36.5 C 08/31/22 20:00 Pulse 107 H 08/30/22 10:44 Resp 18 08/30/22 10:44 BP 124/85 08/30/22 10:44 Pulse Ox 100 08/30/22 10:44 O2 Del Method Room Air 08/30/22 10:44 Results & Data ([facility]) Current Inpatient Medications Current Inpatient Medications: Current Inpatient Medications Acetaminophen (Acetaminophen 325 Mg Tab) 650 mg PO Q4H PRN PRN Reason: Headache or Minor Fever Stop: 09/21/22 20:37 Last Admin: 08/26/22 21:40 Dose: 650 mg Al Hydrox/Mg Hydrox/Simethicone (Aluminum/Magnesium Susp 30 Ml Udc) 30 ml PO Q4H PRN PRN Reason: GI Upset Stop: 09/21/22 20:37 Bismuth Subsalicylate (Bismuth Subsalicylate Liqd 236 Ml) 15 ml PO PRN PRN PRN Reason: Loose Stool Stop: 09/21/22 20:37 Haloperidol (Haloperidol 5 Mg Tab) 5 mg PO TID CATHY Stop: 09/28/22 08:59 Last Admin: 09/01/22 08:51 Dose: 5 mg Haloperidol (Haloperidol 5 Mg Tab) 5 mg PO Q6 PRN PRN Reason: psychosis or lacho Stop: 09/28/22 08:45 Last Admin: 08/30/22 11:07 Dose: 5 mg Haloperidol Lactate (Haloperidol Lactate 5 Mg/Ml 1 Ml Vial) 5 mg IM Q6 PRN; Protocol PRN Reason: psychosis or lacho Stop: 09/28/22 08:45 Hydroxyzine HCl (Hydroxyzine Hcl 25 Mg Tab) 50 mg PO HSZ PRN PRN Reason: Insomnia Stop: 09/21/22 20:37 Last Admin: 08/24/22 22:19 Dose: 50 mg Hydroxyzine HCl (Hydroxyzine Hcl 25 Mg Tab) 25 mg PO Q4H PRN PRN Reason: Anxiety Stop: 09/21/22 20:37 Lorazepam (Lorazepam 1 Mg Tab) 1 mg PO TID PRN PRN Reason: Anxiety/Agitation Stop: 09/24/22 10:52 Last Admin: 08/27/22 15:14 Dose: 1 mg Lorazepam (Lorazepam 1 Mg Tab) 1 mg PO HS CATHY Stop: 09/30/22 21:59 Last Admin: 08/31/22 21:15 Dose: 1 mg Magnesium Hydroxide (Magnesium Hydroxide Susp 30 Ml Udc) 30 ml PO DAILY PRN PRN Reason: Constipation Stop: 09/21/22 20:37 Sodium Chloride (Sodium Chloride 0.65% Na Soln 45 Ml ([place])) 1 - 2 sprays NA PRN PRN PRN Reason: Nasal Dryness/Congestion Stop: 09/21/22 20:37 Mental Health & Subst Abuse Tx Therapist Name of Therapist: Hx - none currently Sheriff'S Officer Name of Sheriff'S Officer: None Post Discharge Appointments Primary Care Physician Name Of Family Doctor/PCP: CRISPIN
[2022-09-01] MEDS: LORazepam 1 MG TAB PO PRN (12:35)
[2022-09-01] MEDS: ACETAMINOPHEN 325 MG TAB PO PRN (13:37)
[2022-09-01] MEDS: hydrOXYzine HCl 25 MG TAB PO PRN (18:41)
[2022-09-01] MEDS: LORazepam 1 MG TAB PO SCH (20:22)
[2022-09-02] MEDS: haloperidoL 5 MG TAB PO SCH ×3 (08:48→21:03)
[2022-09-02] MEDS: LORazepam 1 MG TAB PO SCH ×3 (08:48→21:03)
--- NOTE | 2022-09-02 11:52 | Psychiatric Progress Note ---
Date of Service September 02, 2022 Impression / Recommendations Impression Chloé is a 21 year old woman and [employer] senior with a history of depression who was admitted for lack of po intake, poor sleep, bizarre disorganized behaviors and statements of SI. Diagnostically consistent with unspecified psychosis with a broad differential including: substance-induced psychosis vs mixed episode of bipolar affective disorder vs primary psychotic disorder vs MDD with psychotic features vs underlying medical issue (elevated WBC but vitals stable and ED provider felt no concerning medical issues). UA was positive for ketones which supports concerns about her recent lack of po intake. She is deemed unstable and requires psychiatric hospitalization for diagnostic clarification, safety and stabilization, medication management and development of further coping skills. She was initially on a 302 commitment, 303 commitment starting on 08/25/2022. MNPR due to fluctuating psychosis with periods of extreme paranoia 09/02/2022: Reviewed interim progress per Dr. Franklin. Today mood is stable and no evidence for acute confusion or psychosis. Tolerating haldol and higher dose of ativan, decompensated with attempt to taper dose with increased persecutory delusions. 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 09/01/2022: * continue haloperidol 5 mg PO TID - consider increase to 5 mg PO BID & 10 mg PO QHS * continue haloperidol 5 mg PO/IM PRN psychosis * continue lorazepam 1 mg QHS only * continue lorazepam 1 mg TID PRN anxiety * a private room remains medically necessary for the safety of self and others. 08/31/2022: * continue haloperidol 5 mg PO TID * continue haloperidol 5 mg PO/IM PRN psychosis * reduce lorazepam to 1 mg QHS only * continue lorazepam 1 mg TID PRN anxiety * a private room remains medically necessary for the safety of self and others. 08/30/2022: * continue haloperidol 5 mg PO TID * continue haloperidol 5 mg PO/IM PRN psychosis * continue lorazepam 1 mg TID * continue lorazepam 1 mg TID PRN anxiety * a private room remains medically necessary for the safety of self and others. 08/29/2022: * discontinue olanzapine, both scheduled and PRN * start haloperidol 5 mg PO TID * start haloperidol 5 mg PO/IM PRN psychosis * contineu lorazepam 1 mg TID * continue lorazepam 1 mg TID PRN anxiety * a private room remains medically necessary for the safety of self and others. 08/28/2022: * Increase olanzapine to 5 mg QAM & QPM and 15 mg QHS, continue to titrate based on PRN use * Continue olanzapine 5 mg PO/IM BID PRN psychosis * Increase lorazepam to 1 mg TID * Continue lorazepam 1 mg TID PRN anxiety * A private room remains medically necessary for the safety of self and others. 08/27/2022: * Continue olanzapine 5 mg QAM & 10 mg QHS, continue to titrate based on PRN use * Continue olanzapine 5 mg PO/IM BID PRN psychosis * Add lorazepam 0.5 mg TID * Continue lorazepam 1 mg TID PRN anxiety * A private room remains medically necessary for the safety of self and others. 08/26/2022: * Increase olanzapine to 5 mg QAM & 10 mg QHS, continue to titrate based on PRN use * Continue olanzapine 5 mg PO/IM BID PRN psychosis * Continue lorazepam 1 mg TID PRN anxiety * A private room remains medically necessary for the safety of self and others. 08/25/2022: Consolidate to olanzapine 10mg HS with 5mg TID prn for psychosis/agitation. Now on 303 commitment. 08/24/2022: Continue olanzapine 5mg BID and additional 5mg bid prn for psychosis/agitation 08/23/2022: The patient was admitted to the [facility] ([facility] unit) on q15 min checks (behavioral with suicide precautions) for safety. The patient will participate in group, recreational, and milieu therapies and w ill be offered additional individual and family sessions as clinically appropriate. -Start zyprexa 5mg po BID -Continue to hold possible prior to admission Pristiq given concerns for possible lacho/mixed episode Inventory Assets Strengths: supportive relationships, family support, [employer] student Needs: safety and stabilization, medication adjustment, additional coping skills, increased outpatient services Suicide Risk Level Suicide Risk Level: Moderate (q15 min suicide checks) (SI prior to admission but feels safe talking to the nurses if she feels in need of further support) Risk Factors Assessment Male: No : Yes Do You Have Access To A Gun?: No (none known but will need to verify once mental status improves) Health Problems: No Mental Health Diagnoses: Yes Substance Use Disorders: Yes Protective Factors Assessment Employed: No Stable Relationships: Yes Supportive Family: Yes Interval History Identifying Information CHLOÉ LEWIS is a 21-year-old woman 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 Chief Complaint "I feel safer". Review of Systems Sleep Information Total Hours of Sleep: 8 Sleep Comments: pt on q-15 minute checks Meal Information Percent Meal Consumed - Breakfast: 50 Percent Meal Consumed - Lunch: 80 Percent Meal Consumed - Dinner: 70 Nutrition Comment: Ate a snack before lunch Subjective Subjective Patient was seen & assessed and interval progress reviewed with treatment team nursing and social work. Last night had some confusion about a peer being her mother and fears after family meeting that her father had possibly . Today reports her mood is improved and that she feels safer. Likes that being in the hospital is helping her work through her grief and "find new coping skills". We review events prior to admission and she denies any recent trauma. Endorses using "street cannabis" that she was using daily since June, she's unsure if it contained any synthetics but had been trying new and different strains. She denies any side effects from the haldol. Does feel a little more tired but agrees that she is doing better today on ativan compared with yesterday when attempt was made to taper dose. She is ok continuing with current ativan dose. Able to speak more to some of the paranoia leading to admission including recalling that she deleted her friend's phone number as she was worried about someone tracking her or trying to harm her friend. Physical Exam Psychiatric Orientation: alert, oriented x 3 and cooperative Apperance: appropriately dressed and appropriately groomed Eye Contact: + fair eye contact Motor Behavior: no abnormal motor movements Speech: normal rate/rhythm/volume of speech Affect: + constricted affect Mood: + anxious mood Thought Process: + thought blocking Thought Content: reality based without delusions Suicidal Thoughts: denies suicidal thoughts, denies suicidal plan and denies suicidal intent Homicidal Thoughts: denies homicidal thoughts Cognition: remote memory grossly intact and language grossly intact Estimated Intelligence: consistent with education level Insight: + limited insight Judgment: + limited judgement Vital Signs (Past 24 Hours) Last Vital Signs Temp 36.8 C 09/02/22 06:00 Pulse 89 09/02/22 06:00 Resp 16 09/02/22 06:00 BP 128/62 09/02/22 06:11 Pulse Ox 96 09/02/22 06:00 O2 Del Method Room Air 09/02/22 06:00 Results & Data ([facility]) Current Inpatient Medications Current Inpatient Medications: Current Inpatient Medications Acetaminophen (Acetaminophen 325 Mg Tab) 650 mg PO Q4H PRN PRN Reason: Headache or Minor Fever Stop: 09/21/22 20:37 Last Admin: 09/01/22 13:37 Dose: 650 mg Al Hydrox/Mg Hydrox/Simethicone (Aluminum/Magnesium Susp 30 Ml Udc) 30 ml PO Q4H PRN PRN Reason: GI Upset Stop: 09/21/22 20:37 Bismuth Subsalicylate (Bismuth Subsalicylate Liqd 236 Ml) 15 ml PO PRN PRN PRN Reason: Loose Stool Stop: 09/21/22 20:37 Haloperidol (Haloperidol 5 Mg Tab) 5 mg PO TID CATHY Stop: 09/28/22 08:59 Last Admin: 09/02/22 08:48 Dose: 5 mg Haloperidol (Haloperidol 5 Mg Tab) 5 mg PO Q6 PRN PRN Reason: psychosis or lacho Stop: 09/28/22 08:45 Last Admin: 08/30/22 11:07 Dose: 5 mg Haloperidol Lactate (Haloperidol Lactate 5 Mg/Ml 1 Ml Vial) 5 mg IM Q6 PRN; Protocol PRN Reason: psychosis or lacho Stop: 09/28/22 08:45 Hydroxyzine HCl (Hydroxyzine Hcl 25 Mg Tab) 50 mg PO HSZ PRN PRN Reason: Insomnia Stop: 09/21/22 20:37 Last Admin: 08/24/22 22:19 Dose: 50 mg Hydroxyzine HCl (Hydroxyzine Hcl 25 Mg Tab) 25 mg PO Q4H PRN PRN Reason: Anxiety Stop: 09/21/22 20:37 Last Admin: 09/01/22 18:41 Dose: 25 mg Lorazepam (Lorazepam 1 Mg Tab) 1 mg PO TID PRN PRN Reason: Anxiety/Agitation Stop: 09/24/22 10:52 Last Admin: 09/01/22 12:35 Dose: 1 mg Lorazepam (Lorazepam 1 Mg Tab) 1 mg PO TID CATHY Stop: 10/01/22 20:59 Last Admin: 09/02/22 08:48 Dose: 1 mg Magnesium Hydroxide (Magnesium Hydroxide Susp 30 Ml Udc) 30 ml PO DAILY PRN PRN Reason: Constipation Stop: 09/21/22 20:37 Sodium Chloride (Sodium Chloride 0.65% Na Soln 45 Ml ([place])) 1 - 2 sprays NA PRN PRN PRN Reason: Nasal Dryness/Congestion Stop: 09/21/22 20:37 Mental Health & Subst Abuse Tx Therapist Name of Therapist: Hx - none currently Cinder Pitman Name of Cinder Pitman: None Post Discharge Appointments Primary Care Physician Name Of Family Doctor/PCP: CRISPIN
[2022-09-03] MEDS: LORazepam 1 MG TAB PO SCH ×2 (08:34→21:13)
[2022-09-03] MEDS: haloperidoL 5 MG TAB PO SCH ×3 (08:34→21:14)
--- NOTE | 2022-09-03 13:18 | Psychiatric Progress Note ---
Date of Service September 03, 2022 Impression / Recommendations Impression Chloé is a 21 year old woman and [employer] senior with a history of depression who was admitted for lack of po intake, poor sleep, bizarre disorganized behaviors and statements of SI. Diagnostically consistent with unspecified psychosis with a broad differential including: substance-induced psychosis vs mixed episode of bipolar affective disorder vs primary psychotic disorder vs MDD with psychotic features vs underlying medical issue (elevated WBC but vitals stable and ED provider felt no concerning medical issues). UA was positive for ketones which supports concerns about her recent lack of po intake. She is deemed unstable and requires psychiatric hospitalization for diagnostic clarification, safety and stabilization, medication management and development of further coping skills. She was initially on a 302 commitment, 303 commitment starting on 08/25/2022. MNPR due to fluctuating psychosis with periods of extreme paranoia 09/03/2022: Overall trending toward improvement but still with periods of incr eased isolation and statements of paranoia/persecution. No longer having any hallucinations or delusions about people coming to her room or trying to harm her. Agrees to slight reduction in mid-day ativan dose in attempt to reduce sedation without leading to worsening of psychiatric symptoms. (1) Substance-induced psychotic disorder: (2) Marijuana use: Plan 09/03/2022: Continue haldol 5mg TID po. Reduce ativan to 1mg BID and 0.5mg midday dose. Attempt fasting lipid panel, glucose, HbA1c tomorrow. 09/02/2022: Continue haldol 5mg TID po and ativan 1mg TID po. 09/01/2022: * continue haloperidol 5 mg PO TID - consider increase to 5 mg PO BID & 10 mg PO QHS * continue haloperidol 5 mg PO/IM PRN psychosis * continue lorazepam 1 mg QHS only * continue lorazepam 1 mg TID PRN anxiety * a private room remains medically necessary for the safety of self and others. 08/31/2022: * continue haloperidol 5 mg PO TID * continue haloperidol 5 mg PO/IM PRN psychosis * reduce lorazepam to 1 mg QHS only * continue lorazepam 1 mg TID PRN anxiety * a private room remains medically necessary for the safety of self and others. 08/30/2022: * continue haloperidol 5 mg PO TID * continue haloperidol 5 mg PO/IM PRN psychosis * continue lorazepam 1 mg TID * continue lorazepam 1 mg TID PRN anxiety * a private room remains medically necessary for the safety of self and others. 08/29/2022: * discontinue olanzapine, both scheduled and PRN * start haloperidol 5 mg PO TID * start haloperidol 5 mg PO/IM PRN psychosis * contineu lorazepam 1 mg TID * continue lorazepam 1 mg TID PRN anxiety * a private room remains medically necessary for the safety of self and others. 08/28/2022: * Increase olanzapine to 5 mg QAM & QPM and 15 mg QHS, continue to titrate based on PRN use * Continue olanzapine 5 mg PO/IM BID PRN psychosis * Increase lorazepam to 1 mg TID * Continue lorazepam 1 mg TID PRN anxiety * A private room remains medically necessary for the safety of self and others. 08/27/2022: * Continue olanzapine 5 mg QAM & 10 mg QHS, continue to titrate based on PRN use * Continue olanzapine 5 mg PO/IM BID PRN psychosis * Add lorazepam 0.5 mg TID * Continue lorazepam 1 mg TID PRN anxiety * A private room remains medically necessary for the safety of self and others. 08/26/2022: * Increase olanzapine to 5 mg QAM & 10 mg QHS, continue to titrate based on PRN use * Continue olanzapine 5 mg PO/IM BID PRN psychosis * Continue lorazepam 1 mg TID PRN anxiety * A private room remains medically necessary for the safety of self and others. 08/25/2022: Consolidate to olanzapine 10mg HS with 5mg TID prn for psychosis/agitation. Now on 303 commitment. 08/24/2022: Continue olanzapine 5mg BID and additional 5mg bid prn for psychosis/agitation 08/23/2022: The patient was admitted [facility] the [facility] mental health unit) on q15 min checks (behavioral with suicide precautions) for safety. The patient will participate in group, recreational, and milieu therapies and will be offered additional individual and family sessions as clinically appropriate. -Start zyprexa 5mg po BID -Continue to hold possible prior to admission Pristiq given concerns for possible lacho/mixed episode Inventory Assets Strengths: supportive relationships, family support, [employer] student Needs: safety and stabilization, medication adjustment, additional coping skills, increased outpatient services Suicide Risk Level Suicide Risk Level: Moderate (q15 min suicide checks) (SI prior to admission but feels safe talking to the nurses if she feels in need of further support) Risk Factors Assessment Male: No : Yes Do You Have Access To A Gun?: No (none known but will need to verify once mental status improves) Health Problems: No Mental Health Diagnoses: Yes Substance Use Disorders: Yes Protective Factors Assessment Employed: No Stable Relationships: Yes Supportive Family: Yes Interval History Identifying Information CHLOÉ LEWIS is a 21-year-old woman 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 Chief Complaint "I'm doing alright, I'm anxious". Review of Systems Sleep Information Total Hours of Sleep: 7 Sleep Comments: pt on q-15 minute checks Meal Information Percent Meal Consumed - Breakfast: 90 Percent Meal Consumed - Lunch: 85 Percent Meal Consumed - Dinner: 60 Nutrition Comment: Ate a snack before lunch Subjective Subjective Patient was seen & assessed and interval progress reviewed with treatment team nursing and social work. Attending groups and socializing at times with peers. This morning seemed a little groggy on awakening. Attending groups and participated though made a few slightly odd and paranoid comments at times including 'concerns about manipulation' and some paranoia about hurting her friend by calling him. After lunch reported some anxiety but couldn't explain what it was due to. Asked to take a nap. Agreed to trial of slightly lower dose of mid-day ativan to help with sedation. Physical Exam Psychiatric Orientation: alert, oriented x 3 and cooperative Apperance: appropriately dressed and appropriately groomed Eye Contact: + fair eye contact Motor Behavior: no abnormal motor movements Speech: normal rate/rhythm/volume of speech Affect: + constricted affect Mood: + anxious mood Thought Process: clear/coherent thought process Thought Content: + paranoid Suicidal Thoughts: denies suicidal thoughts, denies suicidal plan and denies suicidal intent Homicidal Thoughts: denies homicidal thoughts Cognition: remote memory grossly intact and language grossly intact Estimated Intelligence: consistent with education level Insight: + limited insight Judgment: + limited judgement Vital Signs (Past 24 Hours) Last Vital Signs Temp 36.3 C L 09/03/22 06:00 Pulse 55 L 09/03/22 06:00 Resp 16 09/03/22 06:00 BP 100/52 L 09/03/22 06:31 Pulse Ox 96 09/03/22 06:00 O2 Del Method Room Air 09/03/22 06:00 Results & Data ([facility]) Current Inpatient Medications Current Inpatient Medications: Current Inpatient Medications Acetaminophen (Acetaminophen 325 Mg Tab) 650 mg PO Q4H PRN PRN Reason: Headache or Minor Fever Stop: 09/21/22 20:37 Last Admin: 09/01/22 13:37 Dose: 650 mg Al Hydrox/Mg Hydrox/Simethicone (Aluminum/Magnesium Susp 30 Ml Udc) 30 ml PO Q4H PRN PRN Reason: GI Upset Stop: 09/21/22 20:37 Bismuth Subsalicylate (Bismuth Subsalicylate Liqd 236 Ml) 15 ml PO PRN PRN PRN Reason: Loose Stool Stop: 09/21/22 20:37 Haloperidol (Haloperidol 5 Mg Tab) 5 mg PO TID CATHY Stop: 09/28/22 08:59 Last Admin: 09/03/22 08:34 Dose: 5 mg Haloperidol (Haloperidol 5 Mg Tab) 5 mg PO Q6 PRN PRN Reason: psychosis or lacho Stop: 09/28/22 08:45 Last Admin: 08/30/22 11:07 Dose: 5 mg Haloperidol Lactate (Haloperidol Lactate 5 Mg/Ml 1 Ml Vial) 5 mg IM Q6 PRN; Protocol PRN Reason: psychosis or lacho Stop: 09/28/22 08:45 Hydroxyzine HCl (Hydroxyzine Hcl 25 Mg Tab) 50 mg PO HSZ PRN PRN Reason: Insomnia Stop: 09/21/22 20:37 Last Admin: 08/24/22 22:19 Dose: 50 mg Hydroxyzine HCl (Hydroxyzine Hcl 25 Mg Tab) 25 mg PO Q4H PRN PRN Reason: Anxiety Stop: 09/21/22 20:37 Last Admin: 09/01/22 18:41 Dose: 25 mg Lorazepam (Lorazepam 1 Mg Tab) 1 mg PO TID PRN PRN Reason: Anxiety/Agitation Stop: 09/24/22 10:52 Last Admin: 09/01/22 12:35 Dose: 1 mg Lorazepam (Lorazepam 1 Mg Tab) 1 mg PO TID CATHY Stop: 10/01/22 20:59 Last Admin: 09/03/22 08:34 Dose: 1 mg Magnesium Hydroxide (Magnesium Hydroxide Susp 30 Ml Udc) 30 ml PO DAILY PRN PRN Reason: Constipation Stop: 09/21/22 20:37 Sodium Chloride (Sodium Chloride 0.65% Na Soln 45 Ml ([place])) 1 - 2 sprays NA PRN PRN PRN Reason: Nasal Dryness/Congestion Stop: 09/21/22 20:37 Mental Health & Subst Abuse Tx Therapist Name of Therapist: Hx - none currently Customer Experience Specialist Name of Customer Experience Specialist: None Post Discharge Appointments Primary Care Physician Name Of Family Doctor/PCP: CRISPIN
[2022-09-04 08:02] LABS: Estimated Average Glucose 91 mg/dl; Hemoglobin A1C 4.8 % (4.5-5.6)
[2022-09-04] MEDS: LORazepam 1 MG TAB PO SCH ×2 (08:29→20:50)
[2022-09-04] MEDS: haloperidoL 5 MG TAB PO SCH ×3 (08:29→20:50)
[2022-09-04 09:05] LABS: Chol HDL Ratio 2.5 (0-5)
[2022-09-04] MEDS ORDERED: LORazepam 0.5 MG TAB PO SCH (12:00)
--- NOTE | 2022-09-04 13:02 | Psychiatric Progress Note ---
Date of Service September 04, 2022 Impression / Recommendations Impression Allyssa is a 21 year old woman and [employer] senior with a history of depression who was admitted for lack of po intake, poor sleep, bizarre disorganized behaviors and statements of SI. Diagnostically consistent with unspecified psychosis with a broad differential including: substance-induced psychosis vs mixed episode of bipolar affective disorder vs primary psychotic disorder vs MDD with psychotic features vs underlying medical issue (elevated WBC but vitals stable and ED provider felt no concerning medical issues). UA was positive for ketones which supports concerns about her recent lack of po intake. She is deemed unstable and requires psychiatric hospitalization for diagnostic clarification, safety and stabilization, medication management and development of further coping skills. She was initially on a 302 commitment, 303 commitment starting on 08/25/2022. MNPR due to fluctuating psychosis with periods of extreme paranoia 09/04/2022: Ongoing trend toward improvement with no evidence of hallucinations today. Still with moments of possible paranoia but better able to reality-test and overall organized and interacting appropriately with peers but seems to get overstimulated after prolonged periods of interaction. Tolerating haldol and ativan well. Given improvement in her insight re-reviewed her medications including side effects. Reviewed side effects including but not limited to:movement (TD, NMS), cardiac (QTc prolongation), and metabolic (stroke, insulin resistance) and necessity for fasting lipid and glucose labwork and AIMS done with score of 0. Reviewed that her fasting glucose, HbA1c and lipid panel were all normal and reassuring for ongoing haldol use. Reviewed side effects including but not limited to: addictive potential, memory changes, dizziness, potential for respiratory suppression or if combined with alcohol, increased fall risk and not operating heavy machinery or driving while using lorazepam. (1) Unspecified psychosis not due to a substance or known physiological condition: (2) Substance-induced psychotic disorder: (3) Marijuana use: Plan 09/04/2022: Continue haldol 5mg TID po and ativan 1mg qAM, 0.5mg midday, 1mg HS. 09/03/2022: Continue haldol 5mg TID po. Reduce ativan to 1mg BID and 0.5mg midday dose. Attempt fasting lipid panel, glucose, HbA1c tomorrow. 09/02/2022: Continue haldol 5mg TID po and ativan 1mg TID po. 09/01/2022: * continue haloperidol 5 mg PO TID - consider increase to 5 mg PO BID & 10 mg PO QHS * continue haloperidol 5 mg PO/IM PRN psychosis * continue lorazepam 1 mg QHS only * continue lorazepam 1 mg TID PRN anxiety * a private room remains medically necessary for the safety of self and others. 08/31/2022: * continue haloperidol 5 mg PO TID * continue haloperidol 5 mg PO/IM PRN psychosis * reduce lorazepam to 1 mg QHS only * continue lorazepam 1 mg TID PRN anxiety * a private room remains medically necessary for the safety of self and others. 08/30/2022: * continue haloperidol 5 mg PO TID * continue haloperidol 5 mg PO/IM PRN psychosis * continue lorazepam 1 mg TID * continue lorazepam 1 mg TID PRN anxiety * a private room remains medically necessary for the safety of self and others. 08/29/2022: * discontinue olanzapine, both scheduled and PRN * start haloperidol 5 mg PO TID * start haloperidol 5 mg PO/IM PRN psychosis * contineu lorazepam 1 mg TID * continue lorazepam 1 mg TID PRN anxiety * a private room remains medically necessary for the safety of self and others. 08/28/2022: * Increase olanzapine to 5 mg QAM & QPM and 15 mg QHS, continue to titrate based on PRN use * Continue olanzapine 5 mg PO/IM BID PRN psychosis * Increase lorazepam to 1 mg TID * Continue lorazepam 1 mg TID PRN anxiety * A private room remains medically necessary for the safety of self and others. 08/27/2022: * Continue olanzapine 5 mg QAM & 10 mg QHS, continue to titrate based on PRN use * Continue olanzapine 5 mg PO/IM BID PRN psychosis * Add lorazepam 0.5 mg TID * Continue lorazepam 1 mg TID PRN anxiety * A private room remains medically necessary for the safety of self and others. 08/26/2022: * Increase olanzapine to 5 mg QAM & 10 mg QHS, continue to titrate based on PRN use * Continue olanzapine 5 mg PO/IM BID PRN psychosis * Continue lorazepam 1 mg TID PRN anxiety * A private room remains medically necessary for the safety of self and others. 08/25/2022: Consolidate to olanzapine 10mg HS with 5mg TID prn for psychosis/agitation. Now on 303 commitment. 08/24/2022: Continue olanzapine 5mg BID and additional 5mg bid prn for psychosis/agitation 08/23/2022: The patient was admitted to the [facility] ([facility] mental health unit) on q15 min checks (behavioral with suicide precautions) for safety. The patient will participate in group, recreational, and milieu therapies and will be offered additional individual and family sessions as clinically appropriate. -Start zyprexa 5mg po BID -Continue to hold possible prior to admission Pristiq given concerns for possible lacho/mixed episode Inventory Assets Strengths: supportive relationships, family support, [employer] student Needs: safety and stabilization, medication adjustment, additional coping skills, increased outpatient services Suicide Risk Level Suicide Risk Level: Moderate (q15 min suicide checks) (SI prior to admission but none in recent days, mood improving, feels safe talking to the nurses if she feels in need of further support) Risk Factors Assessment Male: No : Yes Do You Have Access To A Gun?: No (none known but will need to verify once mental status improves) Health Problems: No Mental Health Diagnoses: Yes Substance Use Disorders: Yes Protective Factors Assessment Employed: No Stable Relationships: Yes Supportive Family: Yes Interval History Identifying Information ALLYSSA LEWIS is a 21-year-old woman 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 Chief Complaint "I'm doing well". Review of Systems Sleep Information Total Hours of Sleep: 7.5 Sleep Comments: pt on q-15 minute checks Meal Information Percent Meal Consumed - Breakfast: 75 Percent Meal Consumed - Lunch: 75 Percent Meal Consumed - Dinner: 100 Nutrition Comment: Ate a snack before lunch Subjective Subjective Patient was seen & assessed and interval progress reviewed with treatment team nursing and social work. Reported her mood as "feeling trusting" last night. Slept well and denies any nightmares, still having dreams but reports these are good dreams. During our conversation does at one point note she feels "a little unsettled" which she attributes to just having eaten lunch and talking to a peer. She denies any medication side effects. Smiles broadly when discussing her conversation with her friend Oscar on the phone yesterday. She recalls how prior to admission she had become "skeptical" of him and asked to take a break from their friendship. As her psychosis improved this caused her to feel guilt so she was glad she got to talk to him yesterday. Physical Exam Psychiatric Orientation: alert, oriented x 3 and cooperative Apperance: appropriately dressed and appropriately groomed Eye Contact: + fair eye contact Motor Behavior: no abnormal motor movements Speech: normal rate/rhythm/volume of speech Affect: + constricted affect (but with one smile) Mood: + anxious mood Thought Process: clear/coherent thought process Thought Content: + paranoid Suicidal Thoughts: denies suicidal thoughts, denies suicidal plan and denies taylor cidal intent Homicidal Thoughts: denies homicidal thoughts Cognition: remote memory grossly intact and language grossly intact Estimated Intelligence: consistent with education level Insight: + fair insight Judgment: + limited judgement Vital Signs (Past 24 Hours) Last Vital Signs Temp 36.3 C L 09/04/22 06:37 Pulse 128 H 09/04/22 06:37 Resp 16 09/04/22 06:37 BP 135/74 09/04/22 06:37 Pulse Ox 96 09/03/22 06:00 O2 Del Method Room Air 09/03/22 06:00 Results & Data ([facility]) Laboratory Results Laboratory Results - last 24 hr 09/04/22 09/04/22 07:05 07:05 Fasting Glucose 97 Estimat Average Glucose 91 Hemoglobin A1c 4.8 Triglycerides 64 Cholesterol 159 LDL Cholesterol, Calc 82 VLDL Cholesterol, Calc 13 HDL Cholesterol 64 Cholesterol/HDL Ratio 2.5 Current Inpatient Medications Current Inpatient Medications: Current Inpatient Medications Acetaminophen (Acetaminophen 325 Mg Tab) 650 mg PO Q4H PRN PRN Reason: Headache or Minor Fever Stop: 09/21/22 20:37 Last Admin: 09/01/22 13:37 Dose: 650 mg Al Hydrox/Mg Hydrox/Simethicone (Aluminum/Magnesium Susp 30 Ml Udc) 30 ml PO Q4H PRN PRN Reason: GI Upset Stop: 09/21/22 20:37 Bismuth Subsalicylate (Bismuth Subsalicylate Liqd 236 Ml) 15 ml PO PRN PRN PRN Reason: Loose Stool Stop: 09/21/22 20:37 Haloperidol (Haloperidol 5 Mg Tab) 5 mg PO TID CATHY Stop: 09/28/22 08:59 Last Admin: 09/04/22 08:29 Dose: 5 mg Haloperidol (Haloperidol 5 Mg Tab) 5 mg PO Q6 PRN PRN Reason: psychosis or lacho Stop: 09/28/22 08:45 Last Admin: 08/30/22 11:07 Dose: 5 mg Haloperidol Lactate (Haloperidol Lactate 5 Mg/Ml 1 Ml Vial) 5 mg IM Q6 PRN; Protocol PRN Reason: psychosis or lacho Stop: 09/28/22 08:45 Hydroxyzine HCl (Hydroxyzine Hcl 25 Mg Tab) 50 mg PO HSZ PRN PRN Reason: Insomnia Stop: 09/21/22 20:37 Last Admin: 08/24/22 22:19 Dose: 50 mg Hydroxyzine HCl (Hydroxyzine Hcl 25 Mg Tab) 25 mg PO Q4H PRN PRN Reason: Anxiety Stop: 09/21/22 20:37 Last Admin: 09/01/22 18:41 Dose: 25 mg Lorazepam (Lorazepam 1 Mg Tab) 1 mg PO TID PRN PRN Reason: Anxiety/Agitation Stop: 09/24/22 10:52 Last Admin: 09/01/22 12:35 Dose: 1 mg Lorazepam (Lorazepam 1 Mg Tab) 1 mg PO BID CATHY Stop: 10/03/22 20:59 Last Admin: 09/04/22 08:29 Dose: 1 mg Lorazepam (Lorazepam 0.5 Mg Tab) 0.5 mg PO DAILYBL CATHY Stop: 10/04/22 11:59 Last Admin: 09/04/22 12:36 Dose: 0.5 mg Magnesium Hydroxide (Magnesium Hydroxide Susp 30 Ml Udc) 30 ml PO DAILY PRN PRN Reason: Constipation Stop: 09/21/22 20:37 Sodium Chloride (Sodium Chloride 0.65% Na Soln 45 Ml ([place])) 1 - 2 sprays NA PRN PRN PRN Reason: Nasal Dryness/Congestion Stop: 09/21/22 20:37 Mental Health & Subst Abuse Tx Therapist Name of Therapist: Hx - none currently Senior [employer] Name of Senior [employer] D[employer]: None Post Discharge Appointments Primary Care Physician Name Of Family Doctor/PCP: CRISPIN
[2022-09-05] MEDS: haloperidoL 5 MG TAB PO SCH ×3 (08:29→20:36)
[2022-09-05] MEDS: LORazepam 1 MG TAB PO SCH ×2 (08:29→20:36)
--- NOTE | 2022-09-05 09:01 | Psychiatric Progress Note ---
Date of Service September 05, 2022 Impression / Recommendations Impression Chloé is a 21 year old woman and [employer] senior with a history of depression who was admitted for lack of po intake, poor sleep, bizarre disorganized behaviors and statements of SI. Diagnostically consistent with unspecified psychosis with a broad differential including: substance-induced psychosis vs mixed episode of bipolar affective disorder vs primary psychotic disorder vs MDD with psychotic features. UA was positive for ketones which supports concerns about her recent lack of po intake. She is deemed unstable and requires psychiatric hospitalization for diagnostic clarification, safety and stabilization, medication management and development of further coping skills. She was initially on a 302 commitment, 303 commitment starting on 08/25/2022. MNPR due to history of psychosis with periods of extreme paranoia, easily overstimulated and goes to her room when overwhelmed by peers 09/05/2022: Ongoing slow but steady improvement. No evidence of psychosis today but still wiht constricted affect, unclear if represents negative symptoms, side effect of haldol or due to some depression from prolonged hospitalization. Discussed possibility of starting an SSRI for depression but she prefers to hold off on further medication changes at this time. Given possibility of mixed episode of BPAD leading to admission reasonable to hold off on SSRI for now. Will continue with slow taper of ativan to reduce daytime fatigue. (1) Unspecified psychosis not due to a substance or known physiological condition: (2) Substance-induced psychotic disorder: (3) Marijuana use: Plan 09/05/2022: Continue haldol 5mg TID. Reduce ativan to 1mg BID and 0.5mg daily prn. Needs family meeting. 09/04/2022: Continue haldol 5mg TID po and ativan 1mg qAM, 0.5mg midday, 1mg HS. 09/03/2022: Continue haldol 5mg TID po. Reduce ativan to 1mg BID and 0.5mg midday dose. Attempt fasting lipid panel, glucose, HbA1c tomorrow. 09/02/2022: Continue haldol 5mg TID po and ativan 1mg TID po. 09/01/2022: * continue haloperidol 5 mg PO TID - consider increase to 5 mg PO BID & 10 mg PO QHS * continue haloperidol 5 mg PO/IM PRN psychosis * continue lorazepam 1 mg QHS only * continue lorazepam 1 mg TID PRN anxiety * a private room remains medically necessary for the safety of self and others. 08/31/2022: * continue haloperidol 5 mg PO TID * continue haloperidol 5 mg PO/IM PRN psychosis * reduce lorazepam to 1 mg QHS only * continue lorazepam 1 mg TID PRN anxiety * a private room remains medically necessary for the safety of self and others. 08/30/2022: * continue haloperidol 5 mg PO TID * continue haloperidol 5 mg PO/IM PRN psychosis * continue lorazepam 1 mg TID * continue lorazepam 1 mg TID PRN anxiety * a private room remains medically necessary for the safety of self and others. 08/29/2022: * discontinue olanzapine, both scheduled and PRN * start haloperidol 5 mg PO TID * start haloperidol 5 mg PO/IM PRN psychosis * contineu lorazepam 1 mg TID * continue lorazepam 1 mg TID PRN anxiety * a private room remains medically necessary for the safety of self and others. 08/28/2022: * Increase olanzapine to 5 mg QAM & QPM and 15 mg QHS, continue to titrate based on PRN use * Continue olanzapine 5 mg PO/IM BID PRN psychosis * Increase lorazepam to 1 mg TID * Continue lorazepam 1 mg TID PRN anxiety * A private room remains medically necessary for the safety of self and others. 08/27/2022: * Continue olanzapine 5 mg QAM & 10 mg QHS, continue to titrate based on PRN use * Continue olanzapine 5 mg PO/IM BID PRN psychosis * Add lorazepam 0.5 mg TID * Continue lorazepam 1 mg TID PRN anxiety * A private room remains medically necessary for the safety of self and others. 08/26/2022: * Increase olanzapine to 5 mg QAM & 10 mg QHS, continue to titrate based on PRN use * Continue olanzapine 5 mg PO/IM BID PRN psychosis * Continue lorazepam 1 mg TID PRN anxiety * A private room remains medically necessary for the safety of self and others. 08/25/2022: Consolidate to olanzapine 10mg HS with 5mg TID prn for psychosis/agitation. Now on 303 commitment. 08/24/2022: Continue olanzapine 5mg BID and additional 5mg bid prn for psychosis/agitation 08/23/2022: The patient was admitted to the [facility] ([facility]) on q15 min checks (behavioral with suicide precautions) for safety. The patient will participate in group, recreational, and milieu therapies and will be offered additional individual and family sessions as clinically appropriate. -Start zyprexa 5mg po BID -Continue to hold possible prior to admission Pristiq given concerns for possible lacho/mixed episode Inventory Assets Strengths: supportive relationships, family support, [employer] student Needs: safety and stabilization, medication adjustment, additional coping skills, increased outpatient services Suicide Risk Level Suicide Risk Level: Moderate (q15 min suicide checks) (SI prior to admission but none in recent days, mood improving, feels safe talking to the nurses if she feels in need of further support) Risk Factors Assessment Male: No : Yes Do You Have Access To A Gun?: No (none known but will need to verify once mental status improves) Health Problems: No Mental Health Diagnoses: Yes Substance Use Disorders: Yes Protective Factors Assessment Employed: No Stable Relationships: Yes Supportive Family: Yes Interval History Identifying Information CHLOÉ LEWIS is a 21-year-old woman 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 Chief Complaint "I had a bizarre dream last night". Review of Systems Sleep Information Total Hours of Sleep: 9 Sleep Comments: pt on q-15 minute checks Meal Information Percent Meal Consumed - Breakfast: 75 Percent Meal Consumed - Lunch: 100 Percent Meal Consumed - Dinner: 100 Nutrition Comment: Ate a snack before lunch Subjective Subjective Patient was seen & assessed and interval progress reviewed with treatment team nursing and social work. Did a case management intake yesterday. Today reports her mood is "good" but did have a bizarre dream last night. States it wasn't a nightmare and was able to differentiate the dream from reality on awakening. Thinks she felt less tired with the lower dose of ativan but wonders if the lower dose caused her to feel more "depressed" yesterday. States she feels depressed due to prolonged hospitalization but felt she coped well yesterday by using coping strategies and going to group and being around peers even though initially she wasn't sure she wanted to attend. Proud of herself for doing this. No tachycardia on vital checks this morning. She consents to plan to decrease ativan to BID with option for additional prn dose if needed. Physical Exam Psychiatric Orientation: alert, oriented x 3 and cooperative Apperance: appropriately dressed and appropriately groomed Eye Contact: + fair eye contact Motor Behavior: no abnormal motor movements Speech: normal rate/rhythm/volume of speech Affect: + constricted affect (but with one smile) Mood: + anxious mood Thought Process: clear/coherent thought process Thought Content: reality based without delusions Suicidal Thoughts: denies suicidal thoughts, denies suicidal plan and denies suicidal intent Homicidal Thoughts: denies homicidal thoughts Cognition: remote memory grossly intact and language grossly intact Estimated Intelligence: consistent with education level Insight: + fair insight Judgment: + limited judgement Vital Signs (Past 24 Hours) Last Vital Signs Temp 37.2 C 09/04/22 20:00 Pulse 128 H 09/04/22 06:37 Resp 16 09/04/22 06:37 BP 135/74 09/04/22 06:37 Pulse Ox 96 09/03/22 06:00 O2 Del Method Room Air 09/03/22 06:00 Results & Data ([facility]) Laboratory Results Laboratory Results - last 24 hr 09/04/22 07:05 Fasting Glucose 97 Triglycerides 64 Cholesterol 159 LDL Cholesterol, Calc 82 VLDL Cholesterol, Calc 13 HDL Cholesterol 64 Cholesterol/HDL Ratio 2.5 Current Inpatient Medications Current Inpatient Medications: Current Inpatient Medications Acetaminophen (Acetaminophen 325 Mg Tab) 650 mg PO Q4H PRN PRN Reason: Headache or Minor Fever Stop: 09/21/22 20:37 Last Admin: 09/01/22 13:37 Dose: 650 mg Al Hydrox/Mg Hydrox/Simethicone (Aluminum/Magnesium Susp 30 Ml Udc) 30 ml PO Q4H PRN PRN Reason: GI Upset Stop: 09/21/22 20:37 Bismuth Subsalicylate (Bismuth Subsalicylate Liqd 236 Ml) 15 ml PO PRN PRN PRN Reason: Loose Stool Stop: 09/21/22 20:37 Haloperidol (Haloperidol 5 Mg Tab) 5 mg PO TID CATHY Stop: 09/28/22 08:59 Last Admin: 09/05/22 08:29 Dose: 5 mg Haloperidol (Haloperidol 5 Mg Tab) 5 mg PO Q6 PRN PRN Reason: psychosis or lacho Stop: 09/28/22 08:45 Last Admin: 08/30/22 11:07 Dose: 5 mg Haloperidol Lactate (Haloperidol Lactate 5 Mg/Ml 1 Ml Vial) 5 mg IM Q6 PRN; Protocol PRN Reason: psychosis or lacho Stop: 09/28/22 08:45 Hydroxyzine HCl (Hydroxyzine Hcl 25 Mg Tab) 50 mg PO HSZ PRN PRN Reason: Insomnia Stop: 09/21/22 20:37 Last Admin: 08/24/22 22:19 Dose: 50 mg Hydroxyzine HCl (Hydroxyzine Hcl 25 Mg Tab) 25 mg PO Q4H PRN PRN Reason: Anxiety Stop: 09/21/22 20:37 Last Admin: 09/01/22 18:41 Dose: 25 mg Lorazepam (Lorazepam 1 Mg Tab) 1 mg PO TID PRN PRN Reason: Anxiety/Agitation Stop: 09/24/22 10:52 Last Admin: 09/01/22 12:35 Dose: 1 mg Lorazepam (Lorazepam 1 Mg Tab) 1 mg PO BID CATHY Stop: 10/03/22 20:59 Last Admin: 09/05/22 08:29 Dose: 1 mg Lorazepam (Lorazepam 0.5 Mg Tab) 0.5 mg PO DAILYBL CATHY Stop: 10/04/22 11:59 Last Admin: 09/04/22 12:36 Dose: 0.5 mg Magnesium Hydroxide (Magnesium Hydroxide Susp 30 Ml Udc) 30 ml PO DAILY PRN PRN Reason: Constipation Stop: 09/21/22 20:37 Sodium Chloride (Sodium Chloride 0.65% Na Soln 45 Ml ([place])) 1 - 2 sprays NA PRN PRN PRN Reason: Nasal Dryness/Congestion Stop: 09/21/22 20:37 Mental Health & Subst Abuse Tx Therapist Name of Therapist: Hx - none currently Grocery Store Clerk Name of Grocery Store Clerk: None Post Discharge Appointments Primary Care Physician Name Of Family Doctor/PCP: CRISPIN
[2022-09-05] MEDS: LORazepam 0.5 MG TAB PO PRN (17:38)
[2022-09-05] MEDS: hydrOXYzine HCl 25 MG TAB PO PRN (19:12)
[2022-09-06] MEDS: LORazepam 1 MG TAB PO SCH ×2 (08:12→20:11)
[2022-09-06] MEDS: haloperidoL 5 MG TAB PO SCH ×3 (08:12→20:11)
--- NOTE | 2022-09-06 08:59 | Psychiatric Progress Note ---
Date of Service September 06, 2022 Impression / Recommendations Impression Allyssa is a 21 year old woman and [employer] senior with a history of depression who was admitted for lack of po intake, poor sleep, bizarre disorganized behaviors and statements of SI. Diagnostically consistent with unspecified psychosis with a broad differential including: substance-induced psychosis vs mixed episode of bipolar affective disorder vs primary psychotic disorder vs MDD with psychotic features. UA was positive for ketones which supports concerns about her recent lack of po intake. She is deemed unstable and requires psychiatric hospitalization for diagnostic clarification, safety and stabilization, medication management and development of further coping skills. She was initially on a 302 commitment, 303 commitment starting on 08/25/2022. MNPR due to history of psychosis with periods of extreme paranoia, easily overstimulated and goes to her room when overwhelmed by peers 09/06/2022: Some anxiety seems to be related to anticipation about what things will be like for her after discharge. No evidence for acute psychosis. Family meeting today. 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 09/05/2022: Continue haldol 5mg TID. Reduce ativan to 1mg BID and 0.5mg daily prn. Needs family meeting. 09/04/2022: Continue haldol 5mg TID po and ativan 1mg qAM, 0.5mg midday, 1mg HS. 09/03/2022: Continue haldol 5mg TID po. Reduce ativan to 1mg BID and 0.5mg midday dose. Attempt fasting lipid panel, glucose, HbA1c tomorrow. 09/02/2022: Continue haldol 5mg TID po and ativan 1mg TID po. 09/01/2022: * continue haloperidol 5 mg PO TID - consider increase to 5 mg PO BID & 10 mg PO QHS * continue haloperidol 5 mg PO/IM PRN psychosis * continue lorazepam 1 mg QHS only * continue lorazepam 1 mg TID PRN anxiety * a private room remains medically necessary for the safety of self and others. 08/31/2022: * continue haloperidol 5 mg PO TID * continue haloperidol 5 mg PO/IM PRN psychosis * reduce lorazepam to 1 mg QHS only * continue lorazepam 1 mg TID PRN anxiety * a private room remains medically necessary for the safety of self and others. 08/30/2022: * continue haloperidol 5 mg PO TID * continue haloperidol 5 mg PO/IM PRN psychosis * continue lorazepam 1 mg TID * continue lorazepam 1 mg TID PRN anxiety * a private room remains medically necessary for the safety of self and others. 08/29/2022: * discontinue olanzapine, both scheduled and PRN * start haloperidol 5 mg PO TID * start haloperidol 5 mg PO/IM PRN psychosis * contineu lorazepam 1 mg TID * continue lorazepam 1 mg TID PRN anxiety * a private room remains medically necessary for the safety of self and others. 08/28/2022: * Increase olanzapine to 5 mg QAM & QPM and 15 mg QHS, continue to titrate based on PRN use * Continue olanzapine 5 mg PO/IM BID PRN psychosis * Increase lorazepam to 1 mg TID * Continue lorazepam 1 mg TID PRN anxiety * A private room remains medically necessary for the safety of self and others. 08/27/2022: * Continue olanzapine 5 mg QAM & 10 mg QHS, continue to titrate based on PRN use * Continue olanzapine 5 mg PO/IM BID PRN psychosis * Add lorazepam 0.5 mg TID * Continue lorazepam 1 mg TID PRN anxiety * A private room remains medically necessary for the safety of self and others. 08/26/2022: * Increase olanzapine to 5 mg QAM & 10 mg QHS, continue to titrate based on PRN use * Continue olanzapine 5 mg PO/IM BID PRN psychosis * Continue lorazepam 1 mg TID PRN anxiety * A private room remains medically necessary for the safety of self and others. 08/25/2022: Consolidate to olanzapine 10mg HS with 5mg TID prn for psychosis/agitation. Now on 303 commitment. 08/24/2022: Continue olanzapine 5mg BID and additional 5mg bid prn for psychosis/agitation 08/23/2022: The patient was admitted to the [facility] ([facility] mental health unit) on q15 min checks (behavioral with suicide precautions) for safety. The patient will participate in group, recreational, and milieu therapies and will be offered additional individual and family sessions as clinically appropriate. -Start zyprexa 5mg po BID -Continue to hold possible prior to admission Pristiq given concerns for possible lacho/mixed episode Inventory Assets Strengths: supportive relationships, family support, [employer] student Needs: safety and stabilization, medication adjustment, additional coping skills, increased outpatient services Suicide Risk Level Suicide Risk Level: Moderate (q15 min suicide checks) (SI prior to admission but no SI for >1 week, mood stable feels safe talking to the nurses if she feels in need of further support) Risk Factors Assessment Male: No : Yes Do You Have Access To A Gun?: No (none known but will need to verify once mental status improves) Health Problems: No Mental Health Diagnoses: Yes Substance Use Disorders: Yes Protective Factors Assessment Employed: No Stable Relationships: Yes Supportive Family: Yes Interval History Identifying Information ALLYSSA LEWIS is a 21-year-old woman 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 Chief Complaint "I'm feeling tired". Review of Systems Sleep Information Total Hours of Sleep: 6.75 Sleep Comments: pt on q-15 minute checks Meal Information Percent Meal Consumed - Breakfast: 100 Percent Meal Consumed - Lunch: 100 Percent Meal Consumed - Dinner: 50 Nutrition Comment: Ate a snack before lunch Subjective Subjective Patient was seen & assessed and interval progress reviewed with treatment team nursing and social work. Attending groups, at times goes to her room and declines some groups. This morning feel "tired" though she slept ok. She thinks the tiredness is due to "I think I'm just upset about everything after I leave, that it will be overwhelming". Discussed this her and while she had no specific concerns reviewed normal experience of anticipatory anxiety before leaving the hospital especially after prolonged admission and her limited recollection of events prior to admission. However she is also excited to see her family, wants to leave the hospital and talked about her dad hosting a tailgate birthday for her next weekend. She denies any new medication side effects, feels good with reduced dose of ativan. Physical Exam Psychiatric Orientation: alert, oriented x 3 and cooperative Apperance: appropriately dressed and appropriately groomed Eye Contact: + fair eye contact Motor Behavior: no abnormal motor movements Speech: normal rate/rhythm/volume of speech Affect: + flat affect Mood: + anxious mood Thought Process: clear/coherent thought process Thought Content: reality based without delusions Suicidal Thoughts: denies suicidal thoughts, denies suicidal plan and denies suicidal intent Homicidal Thoughts: denies homicidal thoughts Cognition: remote memory grossly intact and language grossly intact Estimated Intelligence: consistent with education level Insight: + fair insight Judgment: + limited judgement Vital Signs (Past 24 Hours) Last Vital Signs Temp 36.9 C 09/06/22 06:24 Pulse 66 09/06/22 06:26 Resp 18 09/06/22 06:24 BP 149/90 H 09/06/22 06:26 Pulse Ox 96 09/03/22 06:00 O2 Del Method Room Air 09/03/22 06:00 Results & Data ([facility]) Current Inpatient Medications Current Inpatient Medications: Current Inpatient Medications Acetaminophen (Acetaminophen 325 Mg Tab) 650 mg PO Q4H PRN PRN Reason: Headache or Minor Fever Stop: 09/21/22 20:37 Last Admin: 09/01/22 13:37 Dose: 650 mg Al Hydrox/Mg Hydrox/Simethicone (Aluminum/Magnesium Susp 30 Ml Udc) 30 ml PO Q4H PRN PRN Reason: GI Upset Stop: 09/21/22 20:37 Last Admin: 09/05/22 18:20 Dose: 30 ml Bismuth Subsalicylate (Bismuth Subsalicylate Liqd 236 Ml) 15 ml PO PRN PRN PRN Reason: Loose Stool Stop: 09/21/22 20:37 Haloperidol (Haloperidol 5 Mg Tab) 5 mg PO TID CATHY Stop: 09/28/22 08:59 Last Admin: 09/06/22 08:12 Dose: 5 mg Haloperidol (Haloperidol 5 Mg Tab) 5 mg PO Q6 PRN PRN Reason: psychosis or lacho Stop: 09/28/22 08:45 Last Admin: 08/30/22 11:07 Dose: 5 mg Haloperidol Lactate (Haloperidol Lactate 5 Mg/Ml 1 Ml Vial) 5 mg IM Q6 PRN; Protocol PRN Reason: psychosis or lacho Stop: 09/28/22 08:45 Hydroxyzine HCl (Hydroxyzine Hcl 25 Mg Tab) 50 mg PO HSZ PRN PRN Reason: Insomnia Stop: 09/21/22 20:37 Last Admin: 08/24/22 22:19 Dose: 50 mg Hydroxyzine HCl (Hydroxyzine Hcl 25 Mg Tab) 25 mg PO Q4H PRN PRN Reason: Anxiety Stop: 09/21/22 20:37 Last Admin: 09/05/22 19:12 Dose: 25 mg Lorazepam (Lorazepam 1 Mg Tab) 1 mg PO BID CATHY Stop: 10/03/22 20:59 Last Admin: 09/06/22 08:12 Dose: 1 mg Lorazepam (Lorazepam 0.5 Mg Tab) 0.5 mg PO DAILY PRN PRN Reason: Anxiety Stop: 10/06/22 08:59 Last Admin: 09/05/22 17:38 Dose: 0.5 mg Magnesium Hydroxide (Magnesium Hydroxide Susp 30 Ml Udc) 30 ml PO DAILY PRN PRN Reason: Constipation Stop: 09/21/22 20:37 Sodium Chloride (Sodium Chloride 0.65% Na Soln 45 Ml ([place])) 1 - 2 sprays NA PRN PRN PRN Reason: Nasal Dryness/Congestion Stop: 09/21/22 20:37 Mental Health & Subst Abuse Tx Psychiatrist Name of Psychiatrist: [facility] - Intake (3 hours) Psychiatrist's Date Of Appointment With Psychiatric Provider: 09/12/2022 Time of Appointment with Psychiatrist: 1 PM Psychiatric Appointment Comment: [address], ([address]), [place], [place] ([facility]) Therapist Name of Therapist: [facility] - Intake (3 hours) Therapist's Date of Therapist Appointment: 09/12/2022 Time of Therapist Appointment: 1 PM Therapy Appointment Comment: [address] ([address]), [place], [place] ([place] [address] [facility] [address]) Tubing Machine Operator Name of Tubing Machine Operator: [facility] Case Management and Supports [facility]. Phone Number for Tubing Machine Operator: [phone] Time of Appointment with Tubing Machine Operator: A targeted briefcase sewer will follow-up with you directly after discharge. Case Management Appointment Comment: If you do not hear from them, please call to set-up visit. Post Discharge Appointments Primary Care Physician Name Of Family Doctor/PCP: Nemo Soloriohn Primary Care Provider Appointment Comment: [address], [place] [address] Contact Information Discharge Discharge Address: [facility] [address], [place] [address]
[2022-09-06] MEDS: LORazepam 0.5 MG TAB PO PRN (11:42)
[2022-09-07] MEDS: LORazepam 1 MG TAB PO SCH (07:53)
[2022-09-07] MEDS: haloperidoL 5 MG TAB PO SCH (07:53)
--- NOTE | 2022-09-07 08:36 | Discharge Summary ---
Date of Service September 07, 2022 History of Present Illness Allyssa was brought to the hospital via police for bizarre behavior. On arrival to the ED she initially refused to come into the hospital stating she needed to lie on the ground on the sidewalk because the clouds told her that she was tired and should rest. Her friend accompanied her to the ED and reported that Allyssa recently stopping taking Pristiq for depression, has not been eating or drinking over the last week and on 08/20/2022 made statements of suicide to her friend. While in the ED she was confused about where she was. Further recent symptoms were noted by the accreditation manager note on 08/22/2022: "Met with Allyssa and attempted to complete mental health evaluation. Allyssa was groggy and stated she is having difficulty focusing on questions. She stated she is prescribed Pratique by her PCP. She admits to frequently missing doses. She stated she believes she is diagnosed with depression. She has a history of therapy but none current. Allyssa is a senior at [employer] majoring in [employer]. She stated she is not doing well in her classes. Stated she is "seeing a lot of people and I'm really embarrassed by that." Stated she "maybe hearing voices." She denies alcohol use. She admit to "a lot of pot" use. Allyssa stated she has not been eating or drinking. She stated she has been "sleep deprived." She stated she does not know family history of mental health. She stated her family is supportive but she has difficulty communicating with family about her mental health." Since being admitted the inpatient psychiatry unit she continues to present with significant disorganization and bizarre statements. This morning was requesting to go outside to lie in the grass, walking around with a blanket covering her head and then muttering numbers to herself while tearfully walking in the amor. When I attempted to talk with her she ignored me initially as she seemed to be preoccupied by internal stimuli and was muttering under her breath. She then abruptly turned to me and asked if she could hug me. She responded well to redirection that this would not be possible or appropriate but remained very tearful and disorganized. Further interview and review of history was not possible due to her level of disorganization and distress. Physical Exam Vital Signs (Past 24 Hours) Last Vital Signs Temp 36.8 C 09/07/22 06:15 Pulse 92 H 09/07/22 06:15 Resp 18 09/07/22 06:15 BP 113/78 09/07/22 06:20 Pulse Ox 96 09/03/22 06:00 O2 Del Method Room Air 09/03/22 06:00 See admission H&P and DOD summary. Principal Diagnosis Unspecified psychosis Psychiatric Data Allyssa was admitted for unspecified psychosis and during the first 10 days of her stay continued to have persecutory delusions, paranoia, visual hallucinations and disorganized behaviors (forgetting how to spit out toothpaste after brushing her teeth, walking around only wearing a blanket draped over her head) and intermittent sleep (sleeping a lot alternating with nights of hardly sleeping). With the exception of some changes in sleep she did not demonstrate any symptoms of acute lacho. She endorsed depression early on, with episodes of tearfulness that seemed to be driven by her paranoia and fear that someone was going to hurt her but did not seem consistent with major depressive episode. Based of this the differential for unspecified psychosis was felt to be most lik edward either a substance-induced or withdrawal presentation from cannabis use versus complex PTSD response versus primary psychotic disorder. She responded poorly to a trial of olanzapine (up to 30mg per day) and so was switched to haldol with excellent response and resolution of her symptoms of psychosis. Ativan was also used, not due to concern for catatonia, but given level of anxiety and distress related to her delusions and fears and seemed to offer significant benefit. Initial attempts to taper her ativan dose resulted in some worsening of paranoia but toward the end of her stay she tolerated a small dose reduction. She at times had some depression toward the end of her stay which she attributed to her prolonged hospitalization and which improved prior to discharge. Should depression worsen after discharge would consider addition of an SSRI or SNRI (she had previously done well on Pristiq). Time was spent on motivational interviewing regarding substance use given concerns for possible contribution from prior to admission cannabis use and she plans to avoid all substance use after discharge and feels capable of doing this without additional substance use outpatient therapy. Overall she was engaged with the social/therapeutic milieu of the unit, safety was maintained and the patient was cooperative with care. Medication changes included initiation of haldol 5mg TID po and ativan 1mg BID po and additional 0.5mg daily prn dose for anxiety/psychosis and they tolerated this well. We reviewed and she understands the risks of addictive potential with lorazepam and need to avoid use of alcohol while taking lorazepam and avoiding driving or operating heavy machinery while taking this. Discussed longer-term goal that eventually she may be able to be tapered off lorazepam at the direction of her new outpatient providers and depending on her symptoms. Baseline labs of fasting glucose, fasting lipid profile, and weight were preformed and all were within normal limits. Recommend repeat weight in one month. Recommend repeat fasting glucose, HbA1c and fasting lipid profile every 12 weeks and then annually. If symptoms arise recommend checking BP, EKG, prolactin level as clinically indicated or relevant. Multiple family sessions were held and a safety plan was completed prior to discharge. She actively and insightfully participated in safety planning and in discussions about ways to seek support and recognizing warning signs and utilizing coping skills. Reviewed mobile apps that could be used for additional ways to have their safety plan and contacts easily available should thoughts of SI re-emerge in the future. Reviewed importance of seeking emergency care should SI intensify, worsen or should they feel unsafe in the future which they agree to do. On the day of discharge she stated her mood was "good and excited" and remained future-oriented including seeing her dad and sisters, returning home to [place], and celebrating her birthday next weekend at the [address] and engaging in aftercare appointments for primary care, with the [facility] first episode psychosis clinic, case management and [employer] student care and advocacy. Day of Discharge Assessment Today the patient voices readiness for discharge. They note improvement in mood and anxiety. They deny thoughts of harm to self or others. Thoughts are organized and they are clinically improved from admission. There is no evidence of psychosis. They improved in the hospital with support and medication adjustments. They agree to take medications as prescribed and keep follow-up appointments. At the time of the discharge they are deemed to be stable and appropriate for outpatient level of care. They are not deemed to be at imminent risk of harm to self or others. They are aware of emergency and crisis services. Knows to call 911 or go to nearest emergency care center if in a crisis which cannot be handled as an outpatient. Transition of Care Transition Of Care Record: was reviewed with the patient Advance Directives Advance Directives Information Provided: Yes Advance Directives: No Mental Health Advance Directive: No Advance Directives on File: No Living Will: No Power of Emu Farm Worker: No Advance Directives Reason:: Declines as Mental Health Visit. Suicide Risk Level Suicide Risk Level Comments: Acute risk is low given improvement in mood and denial of SI, lack of access to lethal means, plan to avoid substance use, improvement in sleep, hopefulness and improvement in psychosis. Chronic risk is low to moderate given a few non- modifiable risk factors: prior psychiatric hospitalizations, unspecified psychosis, childhood trauma but also with protective factors including good social support, sense of responsibility to family and social supports, outpatient care in place, positive coping skills, positive problem solving, capacity to establish therapeutic alliance, willingness to engage with treatment and capacity for self-observation. Counseled on ways to reduce acute and chronic risk including engaging with outpatient providers, avoiding substance use, using safety plan if needed, utilizing supports, taking medication, and using coping skills. Modifiable risk factors of SI, depression and psychosis were addressed during hospitalization through development of new coping skills, family meeting, safety planning, and medication adjustments. Risk Factors Assessment Male: No : Yes Do You Have Access To A Gun?: No Health Problems: No Mental Health Diagnoses: Yes Substance Use Disorders: Yes Previous Attempt: No Family History of Suicide: No Previous Psychiatric Hospitalization: No Hopelessness: No Protective Factors Assessment Employed: No Stable Relationships: Yes Supportive Family: Yes Discharge Data Lab Results 08/22/22 08/22/22 08/22/22 17:37 17:37 17:37 WBC 12.57 H RBC 4.53 Hgb 13.6 Hct 39.3 MCV 86.8 MCH 30.0 MCHC 34.6 RDW Std Deviation 37.4 RDW Coeff of Polo 11.9 Plt Count 399 MPV 9.7 Immature Gran % (Auto) 0.3 Neut % (Auto) 77.9 Lymph % (Auto) 14.1 [place] % (Auto) 7.1 Eos % (Auto) 0.0 Baso % (Auto) 0.6 Neut # (Auto) 9.80 H Lymph # (Auto) 1.77 [place] # (Auto) 0.89 H Eos # (Auto) 0.00 Baso # (Auto) 0.07 Immature Gran # (Auto) 0.04 Sodium 139 Potassium 3.6 Chloride 106 Carbon Dioxide 20 L Anion Gap 13 H BUN 12 Creatinine 0.95 Est Cr Clr Drug Dosing 80.9 Est GFR ( Amer) 99.2 Est GFR (Non-Af Amer) 85.6 BUN/Creatinine Ratio 12.6 Glucose 130 H Fasting Glucose Estimat Average Glucose Hemoglobin A1c Calcium 10.6 H Total Bilirubin 0.9 AST 29 ALT 14 Alkaline Phosphatase 55 Total Protein 8.8 H Albumin 5.5 H Globulin 3.3 Albumin/Globulin Ratio 1.7 Triglycerides Cholesterol LDL Cholesterol, Calc VLDL Cholesterol, Calc HDL Cholesterol Cholesterol/HDL Ratio TSH 2.820 HCG, Qual Urine Color Urine Appearance Urine pH Ur Specific [place]dwell Urine Protein Urine Glucose (UA) Urine Ketones Urine Blood Urine Nitrite Urine Bilirubin Urine Urobilinogen Ur Leukocyte Esterase Urine WBC (Auto) Urine RBC (Auto) U Hyaline Cast (Auto) U Epithel Cells (Auto) Urine Bacteria (Auto) Ur Renal Epithelial Cell Urine Crystals Calcium Oxalate Crystal Urine Mucus Salicylates Urine Opiates Screen Ur Methadone, Qual Acetaminophen Urine Barbiturates Ur Phencyclidine (PCP) U Amphetamin/Meth Scrn MDMA (Ecstasy) Screen U Benzodiazepines Scrn Ur Cocaine Metabolite U Marijuana (THC) Screen U Marijuana THC Carboxy Drug Screen Comment Ethyl Alcohol mg/dL SARS-CoV-2, RNA, NAAT 08/22/22 08/22/22 08/22/22 17:37 17:37 17:37 WBC RBC Hgb Hct MCV MCH MCHC RDW Std Deviation RDW Coeff of Ploo Plt Count MPV Immature Gran % (Auto) Neut % (Auto) Lymph % (Auto) [place] % (Auto) Eos % (Auto) Baso % (Auto) Neut # (Auto) Lymph # (Auto) [place] # (Auto) Eos # (Auto) Baso # (Auto) Immature Gran # (Auto) Sodium Potassium Chloride Carbon Dioxide Anion Gap BUN Creatinine Est Cr Clr Drug Dosing Est GFR ( Amer) Est GFR (Non-Af Amer) BUN/Creatinine Ratio Glucose Fasting Glucose Estimat Average Glucose Hemoglobin A1c Calcium Total Bilirubin AST ALT Alkaline Phosphatase Total Protein Albumin Globulin Albumin/Globulin Ratio Triglycerides Cholesterol LDL Cholesterol, Calc VLDL Cholesterol, Calc HDL Cholesterol Cholesterol/HDL Ratio TSH HCG, Qual Negative Urine Color Urine Appearance Urine pH Ur Specific [place] Urine Protein Urine Glucose (UA) Urine Ketones Urine Blood Urine Nitrite Urine Bilirubin Urine Urobilinogen Ur Leukocyte Esterase Urine WBC (Auto) Urine RBC (Auto) U Hyaline Cast (Auto) U Epithel Cells (Auto) Urine Bacteria (Auto) Ur Renal Epithelial Cell Urine Crystals Calcium Oxalate Crystal Urine Mucus Salicylates < 3.0 L Urine Opiates Screen Ur Methadone, Qual Acetaminophen < 3 L Urine Barbiturates Ur Phencyclidine (PCP) U Amphetamin/Meth Scrn MDMA (Ecstasy) Screen U Benzodiazepines Scrn Ur Cocaine Metabolite U Marijuana (THC) Screen U Marijuana THC Carboxy Drug Screen Comment Ethyl Alcohol mg/dL < 10.0 SARS-CoV-2, RNA, NAAT 08/22/22 08/22/22 08/22/22 Unknown Unknown Unknown WBC RBC Hgb Hct MCV MCH MCHC RDW Std Deviation RDW Coeff of Polo Plt Count MPV Immature Gran % (Auto) Neut % (Auto) Lymph % (Auto) [place] % (Auto) Eos % (Auto) Baso % (Auto) Neut # (Auto) Lymph # (Auto) [place] # (Auto) Eos # (Auto) Baso # (Auto) Immature Gran # (Auto) Sodium Potassium Chloride Carbon Dioxide Anion Gap BUN Creatinine Est Cr Clr Drug Dosing Est GFR ( Amer) Est GFR (Non-Af Amer) BUN/Creatinine Ratio Glucose Fasting Glucose Estimat Average Glucose Hemoglobin A1c Calcium Total Bilirubin AST ALT Alkaline Phosphatase Total Protein Albumin Globulin Albumin/Globulin Ratio Triglycerides Cholesterol LDL Cholesterol, Calc VLDL Cholesterol, Calc HDL Cholesterol Cholesterol/HDL Ratio TSH HCG, Qual Urine Color Dark Yellow Urine Appearance Cloudy A Urine pH 5.0 Ur Specific [place] 1.042 H Urine Protein 1+ H Urine Glucose (UA) Negative Urine Ketones 2+ H Urine Blood Negative Urine Nitrite Negative Urine Bilirubin Negative Urine Urobilinogen Negative Ur Leukocyte Esterase Negative Urine WBC (Auto) 1-5 Urine RBC (Auto) 5-10 H U Hyaline Cast (Auto) 10-30 H U Epithel Cells (Auto) >30 H Urine Bacteria (Auto) 1+ H Ur Renal Epithelial Cell Not Reportable Urine Crystals Not Reportable Calcium Oxalate Crystal Present A Urine Mucus Present A Salicylates Urine Opiates Screen Neg Ur Methadone, Qual Neg Acetaminophen Urine Barbiturates Neg Ur Phencyclidine (PCP) Neg U Amphetamin/Meth Scrn Neg MDMA (Ecstasy) Screen Neg U Benzodiazepines Scrn Neg Ur Cocaine Metabolite Neg U Marijuana (THC) Screen Pos H U Marijuana THC Carboxy Drug Screen Comment Ethyl Alcohol mg/dL SARS-CoV-2, RNA, NAAT NEGATIVE 08/22/22 09/04/22 09/04/22 Unknown 07:05 07:05 WBC RBC Hgb Hct MCV MCH MCHC RDW Std Deviation RDW Coeff of Polo Plt Count MPV Immature Gran % (Auto) Neut % (Auto) Lymph % (Auto) [place] % (Auto) Eos % (Auto) Baso % (Auto) Neut # (Auto) Lymph # (Auto) [place] # (Auto) Eos # (Auto) Baso # (Auto) Immature Gran # (Auto) Sodium Potassium Chloride Carbon Dioxide Anion Gap BUN Creatinine Est Cr Clr Drug Dosing Est GFR ( Amer) Est GFR (Non-Af Amer) BUN/Creatinine Ratio Glucose Fasting Glucose 97 Estimat Average Glucose 91 Hemoglobin A1c 4.8 Calcium Total Bilirubin AST ALT Alkaline Phosphatase Total Protein Albumin Globulin Albumin/Globulin Ratio Triglycerides 64 Cholesterol 159 LDL Cholesterol, Calc 82 VLDL Cholesterol, Calc 13 HDL Cholesterol 64 Cholesterol/HDL Ratio 2.5 TSH HCG, Qual Urine Color Urine Appearance Urine pH Ur Specific [place] Urine Protein Urine Glucose (UA) Urine Ketones Urine Blood Urine Nitrite Urine Bilirubin Urine Urobilinogen Ur Leukocyte Esterase Urine WBC (Auto) Urine RBC (Auto) U Hyaline Cast (Auto) U Epithel Cells (Auto) Urine Bacteria (Auto) Ur Renal Epithelial Cell Urine Crystals Calcium Oxalate Crystal Urine Mucus Salicylates Urine Opiates Screen Ur Methadone, Qual Acetaminophen Urine Barbiturates Ur Phencyclidine (PCP) U Amphetamin/Meth Scrn MDMA (Ecstasy) Screen U Benzodiazepines Scrn Ur Cocaine Metabolite U Marijuana (THC) Screen U Marijuana THC Carboxy 377 H Drug Screen Comment SEE NOTE Ethyl Alcohol mg/dL SARS-CoV-2, RNA, NAAT Hospital Course (1) Unspecified psychosis not due to a substance or known physiological condition: (2) Substance-induced psychotic disorder: (3) Marijuana use: Plan 09/06/2022: Continue current medications and treatment plan. 09/05/2022: Continue haldol 5mg TID. Reduce ativan to 1mg BID and 0.5mg daily prn. Needs family meeting. 09/04/2022: Continue haldol 5mg TID po and ativan 1mg qAM, 0.5mg midday, 1mg HS. 09/03/2022: Continue haldol 5mg TID po. Reduce ativan to 1mg BID and 0.5mg midday dose. Attempt fasting lipid panel, glucose, HbA1c tomorrow. 09/02/2022: Continue haldol 5mg TID po and ativan 1mg TID po. 09/01/2022: * continue haloperidol 5 mg PO TID - consider increase to 5 mg PO BID & 10 mg PO QHS * continue haloperidol 5 mg PO/IM PRN psychosis * continue lorazepam 1 mg QHS only * continue lorazepam 1 mg TID PRN anxiety * a private room remains medically necessary for the safety of self and others. 08/31/2022: * continue haloperidol 5 mg PO TID * continue haloperidol 5 mg PO/IM PRN psychosis * reduce lorazepam to 1 mg QHS only * continue lorazepam 1 mg TID PRN anxiety * a private room remains medically necessary for the safety of self and others. 08/30/2022: * continue haloperidol 5 mg PO TID * continue haloperidol 5 mg PO/IM PRN psychosis * continue lorazepam 1 mg TID * continue lorazepam 1 mg TID PRN anxiety * a private room remains medically necessary for the safety of self and others. 08/29/2022: * discontinue olanzapine, both scheduled and PRN * start haloperidol 5 mg PO TID * start haloperidol 5 mg PO/IM PRN psychosis * contineu lorazepam 1 mg TID * continue lorazepam 1 mg TID PRN anxiety * a private room remains medically necessary for the safety of self and others. 08/28/2022: * Increase olanzapine to 5 mg QAM & QPM and 15 mg QHS, continue to titrate based on PRN use * Continue olanzapine 5 mg PO/IM BID PRN psychosis * Increase lorazepam to 1 mg TID * Continue lorazepam 1 mg TID PRN anxiety * A private room remains medically necessary for the safety of self and others. 08/27/2022: * Continue olanzapine 5 mg QAM & 10 mg QHS, continue to titrate based on PRN use * Continue olanzapine 5 mg PO/IM BID PRN psychosis * Add lorazepam 0.5 mg TID * Continue lorazepam 1 mg TID PRN anxiety * A private room remains medically necessary for the safety of self and others. 08/26/2022: * Increase olanzapine to 5 mg QAM & 10 mg QHS, continue to titrate based on PRN use * Continue olanzapine 5 mg PO/IM BID PRN psychosis * Continue lorazepam 1 mg TID PRN anxiety * A private room remains medically necessary for the safety of self and others. 08/25/2022: Consolidate to olanzapine 10mg HS with 5mg TID prn for psychosis/agitation. Now on 303 commitment. 08/24/2022: Continue olanzapine 5mg BID and additional 5mg bid prn for psychosis/agitation 08/23/2022: The patient was admitted to the [facility]) on q15 min checks (behavioral with suicide precautions) for safety. The patient will participate in group, recreational, and milieu therapies and will be offered additional individual and family sessions as clinically appropriate. -Start zyprexa 5mg po BID -Continue to hold possible prior to admission Pristiq given concerns for possible lacho/mixed episode Mental Health & Subst Abuse Tx Psychiatrist Name of Psychiatrist: [facility] - Intake (3 hours) Psychiatrist's Date Of Appointment With Psychiatric Provider: 09/12/2022 Time of Appointment with Psychiatrist: 1 PM Psychiatric Appointment Comment: [id number], ([address]), [place], [place] [facility], [facility] [place] Therapist Name of Therapist: [facility] - Intake (3 hours) Therapist's Date of Therapist Appointment: 09/12/2022 Time of Therapist Appointment: 1 PM Therapy Appointment Comment: [address]), [place], [place] (park below [facility] side) [employer] Crossing Protection Maintainer Name of [employer] Crossing Protection Maintainer: [facility] [employer] Phone Number for [employer] Cross[employer] Protection Maintainer: [phone] Time of Appointment with [employer] Cross[employer] Protection Maintainer: A targeted comp field case manager will follow-up with you directly after discharge. Case Management Appointment Comment: If you do not hear from them, please call to set-up visit. Post Discharge Appointments Primary Care Physician Name Of Family Doctor/PCP: [facility] Date of Future Appointment with PCP: 09/11/2022 Time of Appointment with PCP: 1PM Provider Appointment Comment: [address] [place] [address] [address], [place] [address] Other #1: Name of Aftercare Appointment: Student Care and Advocacy- Dinah B. Phone Number of Aftercare Appointment: [phone] Date of Aftercare Appointment: 09/11/22 Time of Aftercare Appointment: 9:30am Aftercare Appointment Comment: Zoom link will be sent to U email Contact Information Discharge Discharge Address: [facility] [address], [place] [address] Discharge Plan Discharge Items Patient Disposition: Home - Self-Care Reason For Visit: 303 Discharge Diagnosis: Unspecified psychosis Activity: Resume your previous activity Non-emergency contact: Primary Care Provider, Psychiatrist and [employer] Call non-emergency contact if: you have any medication questions and your symptoms worsen Follow-up/Referrals: PCP,NO [Primary Care Provider] - Diet: Regular Addtl Attending Provider Instructions: Optional mobile apps: -Suicide safety plan -Virtual Hope Box SPECIAL CARE INSTRUCTIONS: 1. Follow through with your scheduled aftercare appointments. If unable to keep an appointment, please call to reschedule. 2. Take your medication only as prescribed. Medication should not be changed or stopped without the approval of your doctor. In the event of worsening symptoms or concerns about side effects, contact your doctor immediately. 3. Utilize new healthy coping skills, anger management skills, and stress management skills learned during your hospitalization. Journal feelings and process them with a support person. Identify stressors or situations that may result in relapse, deterioration or inappropriate behaviors and develop a plan to deal with those issues. 4. If your coping skills are ineffective and you are in crisis, contact your outpatient providers for direction. If unable to reach your providers, please call the [facility] CRISIS LINE AT , go to the [facility] walk-in center at [address], [address], [place], or go to the closest Emergency Room. 5. Avoid alcohol and un-prescribed drugs. 6. You have been provided with the Mental Health Advance Directives Pamphlet for your review. 7. Your condition is stable for discharge to outpatient level of care, but recovery is an ongoing process. Ifthoughts to harm yourself or others return, follow the safety plan developed during your stay. Planning for a safe return home includes securing weapons. Our treatment team recommends weaponsbe removed from the home until your outpatient provider reassesses your progress. In rare cases where the items themselvescannot be removed, guns and ammunitionshould be secured separatelyand keys stored by a reliable personoutside of the home. If you were admitted on an involuntary commitment, the police or other legal authorities may be involved in this process. AFTERCARE APPOINTMENTS: * Please call your insurance company prior to your scheduled appointment to confirm your aftercare providers are covered. Take your insurance information to your appointments. WHO TO CALL AND WHEN: Medical Emergencies: For questions or emergencies related to your hospital stay, please contact the Inpatient Behavioral Health Unit at [phone]. A podiatrist assistant is on-call 25/12 for the Behavioral Health Unit for emergencies National Crisis Hotline: call 988 At any time you feel your situation is an emergency, you may also call 911 immediately. Pending Studies at Discharge: No Stand-Alone Forms: My [facility] Medications and DC Order Prescriptions: New haloperidol 5 mg Tablet 5 mg PO TID 30 Days Qty: 90 0RF lorazepam 1 mg Tablet 1 mg PO BID 30 Days Qty: 60 0RF lorazepam 0.5 mg Tablet 0.5 mg PO DAILY PRN (Reason: anxiety/psychosis) 30 Days Qty: 30 0RF No Action No Known Home Medications Discharge Orders: Discharge Order (Routine); Ordered 09/07/22 Ordered By: Valencia Hall Admission Data Admit Date/Time: 08/22/22 21:10 Attending Provider: Valencia Hall Admit Provider: Valencia Hall Primary Care Provider: PCP,NO Other Interventions: Discharge Summary Assessment (RN) Last Done: 09/07/22 09:38 PSY Interdisciplinary Discharge Planning Last Done: 09/06/22 14:13 Coding Level of Care Code 86061 D/C day mgmt > 30 min Diagnoses 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
== END 2022-09-07 10:05 | disposition home or self-care (01) | DRG 885 ==
LOC: ED 17:22 → 3S 20:59